=== PATIENT | male | born 1960 | race American Indian/Alaskan Native ===

== ENCOUNTER 2016-09-29 20:40 | Inpatient (IN) | payer SELFPAY ==
[2016-09-29 20:40] VITALS: BMI 30.4
[2016-09-29 21:10] LABS: BASO % 0.6 % (0.0-2.0); EOS % 0.5 % (0.0-4.0); HEMATOCRIT 49.9 % (35.0-51.0); LYMPH # 2.9 K/uL (1.0-4.3); LYMPH % 50.3 % (20.0-40.0); MEAN CELL VOLUME 87.9 fL (80.0-94.0); MEAN CORPUSCULAR HEMOGLOBIN 29.6 pg (27.0-31.0); MEAN CORPUSCULAR HGB CONC 33.7 g/dL (33.0-37.0); MEAN PLATELET VOLUME 9.6 fL (7.2-11.7); MONO # 0.4 K/uL (0.0-0.8); MONO % 7.8 % (0.0-10.0); RED CELL DISTRIBUTION WIDTH 12.8 % (11.5-14.5); WHITE BLOOD COUNT 5.7 K/uL (4.8-10.8)
[2016-09-29 21:27] LABS: CHLORIDE 100 mmol/L (98-107); SODIUM 140 mmol/L (132-148)
[2016-09-29 21:29] LABS: AST/SGOT 154 U/L (17-59); BILIRUBIN,TOTAL 1.1 mg/dL (0.2-1.3); CARBON DIOXIDE 27 mmol/L (22-30); GFR AFRICAN-AMERICAN > 60; TOTAL PROTEIN 8.4 g/dL (6.3-8.3)
[2016-09-29 21:30] LABS: ALKALINE PHOSPHATASE 125 U/L (38-126); ALT/SGPT 77 U/L (21-72); BLOOD UREA NITROGEN 11 mg/dL (9-20); CALCIUM 8.8 mg/dl (8.6-10.4); GLUCOSE,RANDOM 84 mg/dL (75-110)
[2016-09-29] MEDS ORDERED: Sodium Chloride 0.9% 1,000 ML IV ONE (21:36)
[2016-09-29] MEDS ORDERED: Aluminum Hydroxide/Magnesium Hydroxide Susp (30 mL) PO STA (21:36)
[2016-09-29] MEDS ORDERED: Belladonna-Phenobarbital PO STA (21:36)
[2016-09-29] MEDS ORDERED: Belladonna-Phenobarbital ONE (21:43)
[2016-09-29] MEDS ORDERED: Aluminum Hydroxide/Magnesium Hydroxide Susp (30 mL) ONE (21:43)
[2016-09-29] MEDS ORDERED: Sodium Chloride 0.9% 50 ML IV ONE (21:44)
[2016-09-29] MEDS ORDERED: Sodium Chloride 0.9% 1,000 ML ONE (21:44)
--- NOTE | 2016-09-29 21:57 | C.PDOC ---
History Of Present Illness Patient is a 55 year old male who presents to the ER with a complaint of constant epigastric pain for the past 3 days, associated with nausea. Patient states he is "withdrawing from heroin and ETOH" and request something for his "withdrawal". Patient also states he is hungry and is asking for food. Denies fever, chills, chest pain or vomiting. Time Seen by Provider: 09/29/16 21:30 Chief Complaint (Nursing): Abdominal Pain History Per: Patient History/Exam Limitations: no limitations Onset/Duration Of Symptoms: Days (3) Current Symptoms Are (Timing): Still Present Location Of Pain/Discomfort: Epigastric Radiation Of Pain To:: None Quality Of Discomfort: Unable To Describe Associated Symptoms: Nausea. denies: Fever, Chills, Vomiting, Chest Pain Exacerbating Factors: None Alleviating Factors: None Recent travel outside of the [place]: No Past Medical History Reviewed: Historical Data, Nursing Documentation, Vital Signs Vital Signs: Last Vital Signs Temp 97.6 F 09/29/16 23:09 Pulse 66 09/29/16 23:09 Resp 18 09/29/16 23:09 BP 171/99 H 09/29/16 23:09 Pulse Ox 98 09/29/16 23:09 - Medical History PMH: Anxiety (used to take Xanax), Hepatitis, HTN, Seizures Surgical History: No Surg Hx - [facility] DETOXIFICATION SERVICES FOR SUBSTANCE ABUSE TREATMENT (11/09/15) GROUP TELEVISION OPERATOR FOR SUBSTANCE ABUSE, MOTIVATIONAL ENHANCE (02/11/15) MEDS MGMT FOR SUBSTANCE ABUSE TREATMENT, METHADONE MAINT (11/09/15) MEDS MGMT FOR SUBSTANCE ABUSE TREATMENT, OTH REPL MED (11/09/15) Family History: States: Unknown Family Hx - Social History Hx Tobacco Use: Yes Hx Alcohol Use: Yes Hx Substance Use: Yes - Immunization History Hx Tetanus Toxoid Vaccination: Yes Hx Influenza Vaccination: Yes Hx Pneumococcal Vaccination: Yes Review Of Systems Constitutional: Negative for: Fever, Chills Cardiovascular: Negative for: Chest Pain Gastrointestinal: Positive for: Nausea, Abdominal Pain (Epigastric) Physical Exam - Physical Exam Appears: Well, Non-toxic, No Acute Distress, Other (Requesting food) Skin: Normal Color, Warm, Dry Head: Atraumatic, Normacephalic Eye(s): bilateral: Normal Inspection, EOMI Oral Mucosa: Moist Chest: Symmetrical, No Tenderness Cardiovascular: Rhythm Regular, No Murmur Respiratory: No Rales, No Rhonchi, No Wheezing Gastrointestinal/Abdominal: Soft, Tenderness (Epigastric), No Guarding, No Rebound Neurological/Psych: Oriented x3, Normal Speech, Normal Cognition ED Course And Treatment - Laboratory Results Result Diagrams: 09/29/16 21:06 09/29/16 21:06 Lab Interpretation: No Acute Changes (elevated LFTs c/w diagnosis of Hep C) O2 Sat by Pulse Oximetry: 98 Pulse Ox Interpretation: Normal Reevaluation Time: 22:38 Reassessment Condition: Improved (Patient states to RN that his abdominal pain is better but is telling me he is still uncomfortable. He claims he is "withdrawing" because he uses 12-20 bags a day. His vitals are stable and he is in no distress.) - Physician Consult Information Time Consulting Physician Contacted: 11:30 Physician Contacted: Sekou Hoskins Outcome Of Conversation: Patient c/o severe distress and abdominal pain. He insists he is withdrawing. Dr Hoskins agrees to keep the patient for observation. Medical Decision Making Medical Decision Making: Plan: * Urinalysis * Maalox * Reglan * Protonix * Donnatel * IV fluids Disposition - Disposition Referrals: [facility] at [facility] [Outside] Disposition: HOSPITALIZED Disposition Time: 22:41 Condition: STABLE - POA Present On Arrival: None - Clinical Impression Clinical Impression: Abdominal pain, Drug dependence, Alcohol abuse - Scribe Statement The provider has reviewed the documentation as recorded by the Scribnaresh Zurita All medical record entries made by the Scribe were at my direction and personally dictated by me. I have reviewed the chart and agree that the record accurately reflects my personal performance of the history, physical exam, medical decision making, and the department course for this patient. I have also personally directed, reviewed, and agree with the discharge instructions and disposition.
[2016-09-29 22:13] LABS: URINE BILIRUBIN NEGATIVE (NEGATIVE); URINE BLOOD NEGATIVE (NEGATIVE); URINE COLOR Yellow (YELLOW); URINE GLUCOSE (UA) NORMAL (Normal); URINE KETONE NEGATIVE (NEGATIVE); URINE LEUKOCYTE ESTERASE NEG Leu/uL (Negative); URINE PROTEIN NEGATIVE (NEGATIVE)
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
[2016-09-30] MEDS: Sodium Chloride 0.9% 1,000 ML IV SCH ×2 (02:04→22:05)
[2016-09-30 03:44] LABS: CHLORIDE 104 mmol/L (98-107); POTASSIUM 3.6 mmol/L (3.6-5.2); SODIUM 138 mmol/L (132-148)
[2016-09-30 03:46] LABS: AST/SGOT 123 U/L (17-59); CARBON DIOXIDE 22 mmol/L (22-30); GFR AFRICAN-AMERICAN > 60
[2016-09-30 03:47] LABS: ALB/GLOB RATIO 0.8 (1.0-2.1); ALKALINE PHOSPHATASE 101 U/L (38-126); ALT/SGPT 75 U/L (21-72); BLOOD UREA NITROGEN 10 mg/dL (9-20); CALCIUM 7.4 mg/dl (8.6-10.4); GLUCOSE,RANDOM 75 mg/dL (75-110)
[2016-09-30 05:33] LABS: BASO % 0.7 % (0.0-2.0); EOS # 0.1 K/uL (0.0-0.7); EOS % 1.7 % (0.0-4.0); HEMATOCRIT 45.7 % (35.0-51.0); LYMPH % 50.4 % (20.0-40.0); MEAN CELL VOLUME 87.5 fL (80.0-94.0); MEAN CORPUSCULAR HEMOGLOBIN 29.6 pg (27.0-31.0); MEAN CORPUSCULAR HGB CONC 33.8 g/dL (33.0-37.0); MONO # 0.4 K/uL (0.0-0.8); NRBC % 0.1 % (0.0-2.0); RED CELL DISTRIBUTION WIDTH 12.8 % (11.5-14.5)
--- NOTE | 2016-09-30 10:57 | US ---
HISTORY: Abdominal pain. COMPARISON: None. TECHNIQUE: Sonographic evaluation of the abdomen. FINDINGS: LIVER: Measures 17.6 cm. Hepatopedal blood flow. Fatty infiltration manifest ultrasonographically as increased echogenicity of the liver parenchyma. No mass. No intrahepatic bile duct dilatation. GALLBLADDER: Unremarkable. No gallstones. COMMON BILE DUCT: Measures 3.4 mm. No stones. No dilatation. PANCREAS: Unremarkable as visualized. No mass. No ductal dilatation. RIGHT KIDNEY: Measures 6.5 x 12.8cm. Normal echogenicity. No calculus, mass, or hydronephrosis. LEFT KIDNEY: Measures 5.7 x 12.1cm. Normal echogenicity. No calculus, mass, or hydronephrosis. SPLEEN: Normal in size and contour. No mass. AORTA: No aneurysmal dilatation. IVC: Unremarkable. OTHER FINDINGS: None. IMPRESSION: No acute findings related to/accounting for the clinical presentation.
[2016-09-30] MEDS: Pantoprazole 40 mg EC Tab PO SCH (11:04)
[2016-09-30] MEDS: Enoxaparin 40 mg Syringe SC SCH (11:04)
[2016-09-30] MEDS: Multiple Vitamins Tab PO SCH (13:30)
--- NOTE | 2016-09-30 14:55 | PCM.PSYCH ---
Initial Psychiatric Evaluation - Initial Psychiatric Evaluation Type of Admission: Voluntary Legal Status: Capacity Chief Complaint (in patient's own words): "I am withdrawing" History of Present Illness and Precipitating Events: The pt is seen, chart reviewed, case discussed with staff. Consultation was asked for his substance use and wdw. This is a 55yo male who is with 3 children and lives with his mother. He states that he snorts 12 bags of heroin a day on and off for years. He also says that he drinks about 2 pints of alcohol a day, uses Xanax once a week, and snorts cocaine occasionally. He denies the use of Percocet or Oxycontin. He states that he has been to detox here a few months ago. He currently complains of anxiety, the shakes, and feels like vomiting. UDS positive for opioids and bzds. Past psych hx: vague bipolar condition, was on seroquel with good results. No victoria attempts Medical hx: Hep C Family psych hx: Unknown Current Medications: Active Medications Generic Name Dose Route Start Last Admin Trade Name Freq PRN Reason Stop Dose Admin Acetaminophen 650 mg 09/30/16 01:47 Tylenol 325mg Tab PO Q6 PRN Fever >100.4 F Chlordiazepoxide 25 mg 09/30/16 12:00 09/30/16 13:30 Librium PO 10/04/16 11:59 25 mg Q6 SUKH Administration Taper Chlordiazepoxide 25 mg 09/30/16 10:40 Librium PO Q4H PRN Alcohol Withdrawal Clonidine HCl 0.1 mg 09/30/16 02:00 09/30/16 14:03 Catapres PO 0.1 mg Q6H SUKH Administration Enoxaparin Sodium 40 mg 09/30/16 10:00 09/30/16 11:04 Lovenox SC 40 mg DAILY SUKH Administration Folic Acid 1 mg 09/30/16 10:45 09/30/16 13:30 Folic Acid PO 1 mg DAILY SUKH Administration Sodium Chloride 1,000 mls @ 100 mls/hr 09/30/16 02:00 09/30/16 02:04 Sodium Chloride 0.9% IV 100 mls/hr .Q10H SUKH Administration Lorazepam 2 mg 09/30/16 02:39 Ativan IVP Q3H PRN Anxiety Methadone HCl 0 mg 10/01/16 09:00 Methadone PO 10/04/16 08:59 Q24H SUKH Taper Multivitamins 1 tab 09/30/16 10:45 09/30/16 13:30 Hexavitamin PO 1 tab DAILY SUKH Administration Ondansetron HCl 4 mg 09/30/16 01:47 Zofran Inj IVP Q6 PRN Nausea/Vomiting Pantoprazole Sodium 40 mg 09/30/16 10:00 09/30/16 11:04 Protonix Ec Tab PO 40 mg DAILY SUKH Administration Quetiapine Fumarate 50 mg 09/30/16 10:45 09/30/16 13:30 Seroquel PO 50 mg BID SUKH Administration Thiamine HCl 100 mg 09/30/16 10:45 09/30/16 13:30 Vitamin B1 Tab PO 100 mg DAILY SUKH Administration Trazodone HCl 100 mg 09/30/16 22:00 Desyrel PO HS SUKH Past Psychiatric History - Past Psychiatric History Previous Treatment History: Inpatient Pertinent Medical Hx (Current Medical&Sleep Prob, Allergies): Allergies Allergy/AdvReac Type Severity Reaction Status Date / Time tomato Allergy Verified 09/29/16 20:59 Aspirin [Aspirin Chewable] 81 mg PO DAILY #30 chew 11/14/15 Gabapentin [Neurontin] 400 mg PO TID #90 cap 11/14/15 QUEtiapine [Seroquel] 100 mg PO BID #60 tab 11/14/15 amLODIPine [Norvasc] 10 mg PO DAILY #30 tab 11/14/15 hydrALAZINE [Apresoline] 25 mg PO TID #90 tab 11/14/15 Review of Systems - Psychiatric Psychiatric: Abnormal Sleep Pattern, Anxiety, Irritability. absent: Depression , Hallucinations, Homicidal Ideation, Suicidal Ideation Mental Status Examination - Personal Presentation Personal Presentation: Looks older than stated age - Affect Affect: Constricted - Motor Activity Motor Activity: Psychomotor Agitation (mild) - Reliability in Providing Information Reliability in Providing Information: Fair - Speech Speech: Organized - Mood Mood: Anxious - Formal Thought Process Formal Thought Process: No Impairment - Cognitive Functions Orientation: Person, Place, Situation, Time Sensorium: Alert Attention/Concentration: Attentive Estimate of Intelligence: Average Judgement: Intact, as evidence by: Insight regarding need for hospitalization Memory: Recent impaired, as evidence by: Inability to recall events of the day, Remote impaired as evidenced by: Inability to recall sig life events - Risk Risk: Withdrawal, Diminished functioning DSM 5 DX - DSM 5 DSM 5 Diagnosis: Opioid withdrawal Alcohol withdrawal Opioid use d/o - severe Alcohol use d/o - severe Bipolar d/o - unspecified - Recommended/Plan of Treatment Treatment Recommendations and Plan of Treatment: Opioids: - Methadone detox - As needed meds Alcohol/benzos: - Librium detox - As needed meds - gabapentin Support and psychoed [place] and CBT for abstinence 33 min
[2016-10-01] MEDS ORDERED: Sodium Chloride 0.9% 1,000 ML IV SCH ×3 (04:34→14:57)
[2016-10-01 06:57] LABS: BASO % 0.4 % (0.0-2.0); EOS # 0.1 K/uL (0.0-0.7); EOS % 1.8 % (0.0-4.0); HEMATOCRIT 46.7 % (35.0-51.0); LYMPH # 1.8 K/uL (1.0-4.3); LYMPH % 52.5 % (20.0-40.0); MEAN CELL VOLUME 87.1 fL (80.0-94.0); MEAN CORPUSCULAR HEMOGLOBIN 29.7 pg (27.0-31.0); MEAN CORPUSCULAR HGB CONC 34.1 g/dL (33.0-37.0); MEAN PLATELET VOLUME 9.3 fL (7.2-11.7); MONO # 0.4 K/uL (0.0-0.8); MONO % 11.4 % (0.0-10.0); NRBC % 0.1 % (0.0-2.0); RED CELL DISTRIBUTION WIDTH 12.7 % (11.5-14.5); WHITE BLOOD COUNT 3.4 K/uL (4.8-10.8)
[2016-10-01 07:25] LABS: CHLORIDE 101 mmol/L (98-107); POTASSIUM 3.3 mmol/L (3.6-5.2); SODIUM 134 mmol/L (132-148)
[2016-10-01 07:27] LABS: AST/SGOT 132 U/L (17-59); BILIRUBIN,TOTAL 1.5 mg/dL (0.2-1.3); CARBON DIOXIDE 24 mmol/L (22-30); GFR AFRICAN-AMERICAN > 60
[2016-10-01 07:28] LABS: ALB/GLOB RATIO 0.9 (1.0-2.1); ALKALINE PHOSPHATASE 104 U/L (38-126); ALT/SGPT 77 U/L (21-72); BLOOD UREA NITROGEN 11 mg/dL (9-20); CALCIUM 8.1 mg/dl (8.6-10.4); GLUCOSE,RANDOM 108 mg/dL (75-110); TOTAL PROTEIN 7.1 g/dL (6.3-8.3)
[2016-10-01] MEDS ORDERED: Potassium Chloride 20 mEq ER Tab PO ONE (10:00)
[2016-10-01] MEDS: Pantoprazole 40 mg EC Tab PO SCH (12:23)
[2016-10-01] MEDS: Multiple Vitamins Tab PO SCH (12:23)
[2016-10-01] MEDS: Enoxaparin 40 mg Syringe SC SCH (12:23)
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
--- NOTE | 2016-10-01 14:28 | CP.PCM.PN ---
Addendum entered and electronically signed by Dominga Gold DO 10/01/16 14:58 : As per cardiology, QTc <500 is acceptable for this patient. Seroquel, Trazadone , and methadone can be restarted. Fluids reduced due to Hypertension. Addendum entered and electronically signed by Dominga Gold DO 10/01/16 14:43 : Cardiology Consulted - Dr. Chester for QTc prolongation and bradycardia. Original Note: <Dominga Gold - Last Filed: 10/01/16 14:22> Subjective - Date & Time of Evaluation Date of Evaluation: 10/01/16 Time of Evaluation: 10:00 - Subjective Subjective: Medicine Note for Dr. Rodriguez, Patient was seen and examined at bedside. Patient was asymptomatic, vitals showed he was bradycardic at 30-40s. Patient stated this has happened to him before and when he gets this methadone, he "feels better". EKG was ordered showing QTc prolongation. Seroquel, Trazadone, and methadone where held. 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 ICU was consulted but patient was not an ICU candidate. Patient is to remain on telemetry. Denied fever, chills, headache, chest pain, SOB, abdominal pain, or urinary symptoms. Objective - Vital Signs/Intake and Output Vital Signs (last 24 hours): Temp Pulse Resp BP Pulse Ox 97.6 F 60 20 172/100 H 95 10/01/16 08:13 10/01/16 08:13 10/01/16 08:13 10/01/16 08:13 10/01/16 08:13 - Medications Medications: Current Medications Acetaminophen (Tylenol 325mg Tab) 650 mg PO Q6 PRN PRN Reason: Fever >100.4 F Chlordiazepoxide (Librium) 25 mg PO TID [facility] PRN Reason: Taper Stop: 10/04/16 11:59 Last Admin: 10/01/16 06:30 Dose: 25 mg Chlordiazepoxide (Librium) 25 mg PO Q4H PRN PRN Reason: Alcohol Withdrawal Diphenhydramine HCl (Benadryl) 25 mg PO ONCE PRN PRN Reason: Insomnia Last Admin: 09/30/16 21:54 Dose: 25 mg Enoxaparin Sodium (Lovenox) 40 mg SC DAILY [facility] Last Admin: 10/01/16 12:23 Dose: 40 mg Folic Acid (Folic Acid) 1 mg PO DAILY [facility] Last Admin: 10/01/16 12:23 Dose: 1 mg Sodium Chloride (Sodium Chloride 0.9%) 1,000 mls @ 100 mls/hr IV .Q10H [facility] Last Admin: 10/01/16 14:21 Dose: Not Given Lisinopril (Zestril) 10 mg PO DAILY [facility] Last Admin: 10/01/16 12:30 Dose: 10 mg Lorazepam (Ativan) 2 mg IVP Q3H PRN PRN Reason: Anxiety Methadone HCl (Methadone) 15 mg PO Q24H [facility] PRN Reason: Taper Stop: 10/04/16 08:59 Last Admin: 10/01/16 12:24 Dose: Not Given Multivitamins (Hexavitamin) 1 tab PO DAILY [facility] Last Admin: 10/01/16 12:23 Dose: 1 tab Ondansetron HCl (Zofran Inj) 4 mg IVP Q6 PRN PRN Reason: Nausea/Vomiting Pantoprazole Sodium (Protonix Ec Tab) 40 mg PO DAILY [facility] Last Admin: 10/01/16 12:23 Dose: 40 mg Quetiapine Fumarate (Seroquel) 50 mg PO BID [facility] Last Admin: 10/01/16 12:24 Dose: Not Given Thiamine HCl (Vitamin B1 Tab) 100 mg PO DAILY [facility] Last Admin: 10/01/16 12:23 Dose: 100 mg Trazodone HCl (Desyrel) 100 mg PO HS [facility] Last Admin: 09/30/16 21:54 Dose: 100 mg - Constitutional Appears: No Acute Distress - Head Exam Head Exam: NORMAL INSPECTION, NORMOCEPHALIC - Respiratory Exam Respiratory Exam: Clear to Ausculation Bilateral, NORMAL BREATHING PATTERN. absent: Decreased Breath Sounds, Wheezes - Cardiovascular Exam Cardiovascular Exam: Bradycardia - GI/Abdominal Exam GI & Abdominal Exam: Soft, Normal Bowel Sounds. absent: Distended, Tenderness - Extremities Exam Extremities Exam: Normal Inspection. absent: Pedal Edema, Tenderness - Neurological Exam Neurological Exam: Alert, Awake, Oriented x3 - Skin Skin Exam: Dry, Intact, Normal Color, Warm Assessment and Plan - Assessment and Plan (Free Text) Plan: Asymptomatic Bradycardia Patient HR ranging 30-50s. EKG showed QTc prolongation at 470. All medications that prolonged QTc where held. ICU was consulted but patient is not a candidate for ICU. Continue telemetry monitoring Polysubstance abuse Patient educated on cessation, wants detox but no bed available at this time Psych consult, Dr. Moore, help appreciated [facility] protocol Librium taper Seizure precaution Aspiration precaution Ativan 2 mg Q3H PRN - HELD due to QTC prolongation Clonidine 0.1 mg PO Q6H- HELD due to QTC prolongation Methadone -HELD due to QTC prolongation Seroquel and Trazodone HELD due to QTC prolongation Abdominal pain Observation med/surg Abdominal US - no acute findings NS 100 c/hr Zofran 4 mg IVP Q6H PRN Protonix 40 mg PO daily EKG GAVINO x 3- negative HTN Clonidine 0.1 mg PO Q6H - HELD due to QTC prolongation Prophylactic Measures Lovenox 40 mg SC daily [facility] Tylenol 650 mg PO Q6H PRN Protonix 40 mg PO daily <Kenan Rodriguez M - Last Filed: 10/01/16 16:00> Objective - Vital Signs/Intake and Output Vital Signs (last 24 hours): Temp Pulse Resp BP Pulse Ox 97.6 F 53 L 20 190/99 H 99 10/01/16 14:30 10/01/16 14:30 10/01/16 14:30 10/01/16 14:30 10/01/16 14:30 - Medications Medications: Current Medications Acetaminophen (Tylenol 325mg Tab) 650 mg PO Q6 PRN PRN Reason: Fever >100.4 F Chlordiazepoxide (Librium) 25 mg PO TID [facility] PRN Reason: Taper Stop: 10/04/16 11:59 Last Admin: 10/01/16 14:40 Dose: 25 mg Chlordiazepoxide (Librium) 25 mg PO Q4H PRN PRN Reason: Alcohol Withdrawal Diphenhydramine HCl (Benadryl) 25 mg PO ONCE PRN PRN Reason: Insomnia Last Admin: 09/30/16 21:54 Dose: 25 mg Enoxaparin Sodium (Lovenox) 40 mg SC DAILY [facility] Last Admin: 10/01/16 12:23 Dose: 40 mg Folic Acid (Folic Acid) 1 mg PO DAILY [facility] Last Admin: 10/01/16 12:23 Dose: 1 mg Lisinopril (Zestril) 10 mg PO DAILY [facility] Last Admin: 10/01/16 12:30 Dose: 10 mg Lorazepam (Ativan) 2 mg IVP Q3H PRN PRN Reason: Anxiety Methadone HCl (Methadone) 15 mg PO Q24H [facility] PRN Reason: Taper Stop: 10/04/16 08:59 Last Admin: 10/01/16 12:24 Dose: Not Given Multivitamins (Hexavitamin) 1 tab PO DAILY [facility] Last Admin: 10/01/16 12:23 Dose: 1 tab Ondansetron HCl (Zofran Inj) 4 mg IVP Q6 PRN PRN Reason: Nausea/Vomiting Pantoprazole Sodium (Protonix Ec Tab) 40 mg PO DAILY [facility] Last Admin: 10/01/16 12:23 Dose: 40 mg Quetiapine Fumarate (Seroquel) 50 mg PO BID [facility] Last Admin: 10/01/16 12:24 Dose: Not Given Thiamine HCl (Vitamin B1 Tab) 100 mg PO DAILY [facility] Last Admin: 10/01/16 12:23 Dose: 100 mg Trazodone HCl (Desyrel) 100 mg PO HS [facility] Last Admin: 09/30/16 21:54 Dose: 100 mg Attending/Attestation - Attestation I have personally seen and examined this patient.: Yes I have fully participated in the care of the patient.: Yes I have reviewed all pertinent clinical information, including history, physical exam and plan: Yes Notes (Text): 10/01/16 15:58 Patient was seen and examined at bedside with the resident Patient had a rapid response this morning because of bradycardia. ICU evaluation was requested but patient was declined by ICU because patient was awake and alert and hemodynamically stable. We also requested cardiology consultation and followed up recommendations. Medications were restarted as per recommendations of cardiology. Patient is being the followed up by psychiatry for management of depression and drug abuse Follow-up recommendations I reviewed the patient's chart, medical records, labs, imaging studies and I discussed the plan of care with the consultants and with the resident. I agree with the above history and physical and assessment/plan but the resident.
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
--- NOTE | 2016-10-02 06:35 | CP.PCM.PN ---
Subjective - Date & Time of Evaluation Date of Evaluation: 10/02/16 Time of Evaluation: 06:10 - Subjective Subjective: pt no issues Objective - Vital Signs/Intake and Output Vital Signs (last 24 hours): Temp Pulse Resp BP Pulse Ox 97.8 F 53 L 20 126/86 96 10/02/16 00:00 10/02/16 00:00 10/02/16 00:00 10/02/16 00:00 10/02/16 00:00 - Medications Medications: Current Medications Acetaminophen (Tylenol 325mg Tab) 650 mg PO Q6 PRN PRN Reason: Fever >100.4 F Last Admin: 10/01/16 17:43 Dose: 650 mg Chlordiazepoxide (Librium) 25 mg PO TID [facility] PRN Reason: Taper Stop: 10/04/16 11:59 Last Admin: 10/01/16 17:41 Dose: 25 mg Chlordiazepoxide (Librium) 25 mg PO Q4H PRN PRN Reason: Alcohol Withdrawal Last Admin: 10/02/16 00:33 Dose: 25 mg Enoxaparin Sodium (Lovenox) 40 mg SC DAILY [facility] Last Admin: 10/01/16 12:23 Dose: 40 mg Folic Acid (Folic Acid) 1 mg PO DAILY [facility] Last Admin: 10/01/16 12:23 Dose: 1 mg Lisinopril (Zestril) 10 mg PO DAILY [facility] Last Admin: 10/01/16 12:30 Dose: 10 mg Lorazepam (Ativan) 2 mg IVP Q3H PRN PRN Reason: Anxiety Last Admin: 10/02/16 00:31 Dose: 2 mg Methadone HCl (Methadone) 15 mg PO Q24H [facility] PRN Reason: Taper Stop: 10/04/16 08:59 Last Admin: 10/01/16 16:25 Dose: 10 mg Multivitamins (Hexavitamin) 1 tab PO DAILY [facility] Last Admin: 10/01/16 12:23 Dose: 1 tab Ondansetron HCl (Zofran Inj) 4 mg IVP Q6 PRN PRN Reason: Nausea/Vomiting Pantoprazole Sodium (Protonix Ec Tab) 40 mg PO DAILY [facility] Last Admin: 10/01/16 12:23 Dose: 40 mg Quetiapine Fumarate (Seroquel) 50 mg PO BID [facility] Last Admin: 05/26/17 17:41 Dose: 50 mg Thiamine HCl (Vitamin B1 Tab) 100 mg PO DAILY [facility] Last Admin: 10/01/16 12:23 Dose: 100 mg Trazodone HCl (Desyrel) 100 mg PO [facility] Last Admin: 10/01/16 21:34 Dose: 100 mg - Constitutional Appears: Well, No Acute Distress - Head Exam Head Exam: NORMOCEPHALIC - Eye Exam Eye Exam: Normal appearance - ENT Exam ENT Exam: Mucous Membranes Moist - Respiratory Exam Respiratory Exam: Clear to Ausculation Bilateral. absent: Rales - Cardiovascular Exam Cardiovascular Exam: REGULAR RHYTHM - GI/Abdominal Exam GI & Abdominal Exam: Soft, Normal Bowel Sounds. absent: Tenderness - Extremities Exam Extremities Exam: Normal Inspection. absent: Calf Tenderness - Neurological Exam Neurological Exam: Alert - Psychiatric Exam Psychiatric exam: Normal Mood - Skin Skin Exam: Warm Assessment and Plan (1) Hypertension Assessment & Plan: check QT continue HTN meds low salt diet Status: Acute
[2016-10-02] MEDS: Pantoprazole 40 mg EC Tab PO SCH (09:19)
[2016-10-02] MEDS: Enoxaparin 40 mg Syringe SC SCH (09:19)
[2016-10-02] MEDS: Multiple Vitamins Tab PO SCH (09:19)
[2016-10-02 11:53] LABS: HEMATOCRIT 47.4 % (35.0-51.0); MEAN CELL VOLUME 87.9 fL (80.0-94.0); MEAN CORPUSCULAR HEMOGLOBIN 29.6 pg (27.0-31.0); MEAN CORPUSCULAR HGB CONC 33.7 g/dL (33.0-37.0); MEAN PLATELET VOLUME 10.1 fL (7.2-11.7); RED CELL DISTRIBUTION WIDTH 12.7 % (11.5-14.5); WHITE BLOOD COUNT 3.7 K/uL (4.8-10.8)
[2016-10-02 12:10] LABS: CHLORIDE 103 mmol/L (98-107); SODIUM 135 mmol/L (132-148)
[2016-10-02 12:11] LABS: POTASSIUM 3.4 mmol/L (3.6-5.2)
[2016-10-02 12:12] LABS: GFR AFRICAN-AMERICAN > 60
[2016-10-02 12:14] LABS: ALB/GLOB RATIO 0.9 (1.0-2.1); ALKALINE PHOSPHATASE 116 U/L (38-126); ALT/SGPT 84 U/L (21-72); AST/SGOT 129 U/L (17-59); BLOOD UREA NITROGEN 10 mg/dL (9-20); CALCIUM 8.4 mg/dl (8.6-10.4); CARBON DIOXIDE 22 mmol/L (22-30); GLUCOSE,RANDOM 136 mg/dL (75-110); TOTAL PROTEIN 7.5 g/dL (6.3-8.3)
[2016-10-02] MEDS ORDERED: Potassium Chloride 20 mEq ER Tab PO STA (12:14)
--- NOTE | 2016-10-02 13:45 | CP.PCM.PN ---
<Polina Pretty - Last Filed: 10/02/16 18:30> Subjective - Date & Time of Evaluation Date of Evaluation: 10/02/16 Time of Evaluation: 17:56 - Subjective Subjective: Medicine Progress Note - Dr. Rodriguez's Service Patient seen and examined at bedside this Am. Patient reports he is feeling okay this morning. Patient is shaky, but otherwise feeling well. Denies chest pain, SOB, diarrhea, constipation, nausea, vomiting. He reports he has not eaten. Has not ambulated much. No acute events overnight as per staff. Objective - Vital Signs/Intake and Output Vital Signs (last 24 hours): Temp Pulse Resp BP Pulse Ox 97.4 F L 84 20 154/84 H 98 10/02/16 12:36 10/02/16 12:36 10/02/16 12:36 10/02/16 12:36 10/02/16 12:36 - Medications Medications: Current Medications Acetaminophen (Tylenol 325mg Tab) 650 mg PO Q6 PRN PRN Reason: Fever >100.4 F Last Admin: 10/01/16 17:43 Dose: 650 mg Chlordiazepoxide (Librium) 25 mg PO BID [facility] PRN Reason: Taper Stop: 10/04/16 11:59 Last Admin: 10/02/16 09:19 Dose: 25 mg Chlordiazepoxide (Librium) 25 mg PO Q4H PRN PRN Reason: Alcohol Withdrawal Last Admin: 10/02/16 00:33 Dose: 25 mg Enoxaparin Sodium (Lovenox) 40 mg SC DAILY [facility] Last Admin: 10/02/16 09:19 Dose: 40 mg Folic Acid (Folic Acid) 1 mg PO DAILY [facility] Last Admin: 10/02/16 09:19 Dose: 1 mg Lisinopril (Zestril) 10 mg PO DAILY [facility] Last Admin: 10/02/16 09:20 Dose: Not Given Lorazepam (Ativan) 2 mg IVP Q3H PRN PRN Reason: Anxiety Last Admin: 10/02/16 00:31 Dose: 2 mg Methadone HCl (Methadone) 10 mg PO Q24H [facility] PRN Reason: Taper Stop: 10/04/16 08:59 Last Admin: 10/02/16 09:17 Dose: 10 mg Multivitamins (Hexavitamin) 1 tab PO DAILY [facility] Last Admin: 10/02/16 09:19 Dose: 1 tab Ondansetron HCl (Zofran Inj) 4 mg IVP Q6 PRN PRN Reason: Nausea/Vomiting Pantoprazole Sodium (Protonix Ec Tab) 40 mg PO DAILY [facility] Last Admin: 10/02/16 09:19 Dose: 40 mg Quetiapine Fumarate (Seroquel) 50 mg PO BID [facility] Last Admin: 10/02/16 09:19 Dose: 50 mg Thiamine HCl (Vitamin B1 Tab) 100 mg PO DAILY [facility] Last Admin: 10/02/16 09:19 Dose: 100 mg Trazodone HCl (Desyrel) 100 mg PO HS [facility] Last Admin: 10/01/16 21:34 Dose: 100 mg - Labs Labs: 10/02/16 11:42 10/02/16 11:42 - Constitutional Appears: No Acute Distress - Head Exam Head Exam: NORMAL INSPECTION, NORMOCEPHALIC - Eye Exam Eye Exam: EOMI, Normal appearance - ENT Exam ENT Exam: Mucous Membranes Moist - Respiratory Exam Respiratory Exam: Clear to Ausculation Bilateral, NORMAL BREATHING PATTERN - Cardiovascular Exam Cardiovascular Exam: REGULAR RHYTHM, +S1, +S2 - GI/Abdominal Exam GI & Abdominal Exam: Soft. absent: Distended, Tenderness - Extremities Exam Extremities Exam: Full ROM - Back Exam Back Exam: NORMAL INSPECTION - Neurological Exam Neurological Exam: Alert, Awake, Oriented x3 Additional comments: +tremor - Psychiatric Exam Psychiatric exam: Normal Affect, Normal Mood - Skin Skin Exam: Dry, Warm Assessment and Plan - Assessment and Plan (Free Text) Assessment: 1. Asymptomatic Bradycardia Patient HR ranging 30-50s. Today HR 40-50's. EKG showed QTc prolongation at 470. GAVINO x 3- negative Cardiology Consulted - Dr. Chester for QTc prolongation and bradycardia. ICU was consulted but patient is not a candidate for ICU. As per cardiology, QTc <500 is acceptable for this patient. Seroquel, Trazodone , and methadone may be continued. Fluids reduced due to Hypertension. Continue telemetry monitoring 2. Polysubstance abuse Patient educated on cessation, wants detox but no bed available at this time Psych consult, Dr. Moore, help appreciated [facility] protocol Seizure precaution Aspiration precaution * Librium taper * Ativan 2 mg Q3H PRN * Methadone 10 mg O Q24H * Seroquel and Trazodone * D/C Clonidine 0.1 mg PO Q6H 3. Abdominal pain Resolved Abdominal US - no acute findings NS 100 c/hr Zofran 4 mg IVP Q6H PRN Protonix 40 mg PO daily 4. HTN * D/C Clonidine 0.1 mg PO Q6H due to QTC prolongation * Zestril 10 mg PO daily 5. Back Pain * Tylenol PRN 6. Prophylactic Measures * Lovenox 40 mg SC daily * SCDs * Protonix 40 mg PO daily <Kenan Rodriguez - Last Filed: 10/03/16 08:29> Objective - Vital Signs/Intake and Output Vital Signs (last 24 hours): Temp Pulse Resp BP Pulse Ox 98.1 F 57 L 20 149/92 H 97 10/02/16 23:45 10/03/16 06:24 10/02/16 23:45 10/03/16 06:24 10/02/16 23:45 Intake and Output: 10/03/16 10/03/16 06:59 18:59 Intake Total 480 Output Total 200 Balance 280 - Medications Medications: Current Medications Acetaminophen (Tylenol 325mg Tab) 650 mg PO Q6 PRN PRN Reason: Fever >100.4 F Last Admin: 10/02/16 15:36 Dose: 650 mg Acetaminophen (Tylenol 325mg Tab) 650 mg PO Q6 PRN PRN Reason: Pain, moderate (4-7) Chlordiazepoxide (Librium) 25 mg PO BID [facility] PRN Reason: Taper Stop: 10/04/16 11:59 Last Admin: 10/02/16 17:38 Dose: 25 mg Chlordiazepoxide (Librium) 25 mg PO Q4H PRN PRN Reason: Alcohol Withdrawal Last Admin: 10/02/16 21:46 Dose: 25 mg Enoxaparin Sodium (Lovenox) 40 mg SC DAILY [facility] Last Admin: 10/02/16 09:19 Dose: 40 mg Folic Acid (Folic Acid) 1 mg PO DAILY [facility] Last Admin: 10/02/16 09:19 Dose: 1 mg Lisinopril (Zestril) 10 mg PO DAILY [facility] Last Admin: 10/02/16 09:20 Dose: Not Given Lorazepam (Ativan) 2 mg IVP Q3H PRN PRN Reason: Anxiety Last Admin: 10/02/16 21:38 Dose: 2 mg Methadone HCl (Methadone) 10 mg PO Q24H [facility] PRN Reason: Taper Stop: 10/04/16 08:59 Last Admin: 10/02/16 09:17 Dose: 10 mg Multivitamins (Hexavitamin) 1 tab PO DAILY [facility] Last Admin: 10/02/16 09:19 Dose: 1 tab Ondansetron HCl (Zofran Inj) 4 mg IVP Q6 PRN PRN Reason: Nausea/Vomiting Pantoprazole Sodium (Protonix Ec Tab) 40 mg PO DAILY [facility] Last Admin: 10/02/16 09:19 Dose: 40 mg Quetiapine Fumarate (Seroquel) 50 mg PO BID [facility] Last Admin: 10/02/16 19:00 Dose: 50 mg Thiamine HCl (Vitamin B1 Tab) 100 mg PO DAILY [facility] Last Admin: 10/02/16 09:19 Dose: 100 mg Trazodone HCl (Desyrel) 100 mg PO HS [facility] Last Admin: 10/02/16 21:47 Dose: 100 mg - Labs Labs: 10/02/16 11:42 10/03/16 07:24 Attending/Attestation - Attestation I have personally seen and examined this patient.: Yes I have fully participated in the care of the patient.: Yes I have reviewed all pertinent clinical information, including history, physical exam and plan: Yes Notes (Text): 10/03/16 08:25 Patient was seen and examined at bedside On Methadone taper for heroin withdrawal and [facility] protocol for alcohol withdrawal Patient is still mildly tremulous but clinically improving. I reviewed the chart, labs, imaging studies, media sales consultant notes and I discussed the plan of care with the resident and I agree with above history and physical and assessment/plan by the resident.
[2016-10-03 00:38] VITALS: RESP 20
--- NOTE | 2016-10-03 06:56 | CP.PCM.PN ---
Subjective - Date & Time of Evaluation Date of Evaluation: 10/03/16 Time of Evaluation: 06:55 - Subjective Subjective: tolerating po no cp anxious this am Objective - Vital Signs/Intake and Output Vital Signs (last 24 hours): Temp Pulse Resp BP Pulse Ox 98.1 F 57 L 20 149/92 H 97 10/02/16 23:45 10/03/16 06:24 10/02/16 23:45 10/03/16 06:24 10/02/16 23:45 Intake and Output: 10/02/16 10/03/16 18:59 06:59 Intake Total 360 480 Output Total 200 Balance 360 280 - Medications Medications: Current Medications Acetaminophen (Tylenol 325mg Tab) 650 mg PO Q6 PRN PRN Reason: Fever >100.4 F Last Admin: 10/02/16 15:36 Dose: 650 mg Acetaminophen (Tylenol 325mg Tab) 650 mg PO Q6 PRN PRN Reason: Pain, moderate (4-7) Chlordiazepoxide (Librium) 25 mg PO BID [facility] PRN Reason: Taper Stop: 10/04/16 11:59 Last Admin: 10/02/16 17:38 Dose: 25 mg Chlordiazepoxide (Librium) 25 mg PO Q4H PRN PRN Reason: Alcohol Withdrawal Last Admin: 10/02/16 21:46 Dose: 25 mg Enoxaparin Sodium (Lovenox) 40 mg SC DAILY [facility] Last Admin: 10/02/16 09:19 Dose: 40 mg Folic Acid (Folic Acid) 1 mg PO DAILY [facility] Last Admin: 10/02/16 09:19 Dose: 1 mg Lisinopril (Zestril) 10 mg PO DAILY [facility] Last Admin: 10/02/16 09:20 Dose: Not Given Lorazepam (Ativan) 2 mg IVP Q3H PRN PRN Reason: Anxiety Last Admin: 10/02/16 21:38 Dose: 2 mg Methadone HCl (Methadone) 10 mg PO Q24H [facility] PRN Reason: Taper Stop: 10/04/16 08:59 Last Admin: 10/02/16 09:17 Dose: 10 mg Multivitamins (Hexavitamin) 1 tab PO DAILY [facility] Last Admin: 10/02/16 09:19 Dose: 1 tab Ondansetron HCl (Zofran Inj) 4 mg IVP Q6 PRN PRN Reason: Nausea/Vomiting Pantoprazole Sodium (Protonix Ec Tab) 40 mg PO DAILY [facility] Last Admin: 10/02/16 09:19 Dose: 40 mg Quetiapine Fumarate (Seroquel) 50 mg PO BID [facility] Last Admin: 10/02/16 19:00 Dose: 50 mg Thiamine HCl (Vitamin B1 Tab) 100 mg PO DAILY [facility] Last Admin: 10/02/16 09:19 Dose: 100 mg Trazodone HCl (Desyrel) 100 mg PO [facility] Last Admin: 10/02/16 21:47 Dose: 100 mg - Labs Labs: 10/02/16 11:42 10/02/16 11:42 - Constitutional Appears: Well - Head Exam Head Exam: ATRAUMATIC - Eye Exam Eye Exam: Normal appearance - ENT Exam ENT Exam: Mucous Membranes Moist - Respiratory Exam Respiratory Exam: Clear to Ausculation Bilateral, NORMAL BREATHING PATTERN - Cardiovascular Exam Cardiovascular Exam: REGULAR RHYTHM, Murmur - GI/Abdominal Exam GI & Abdominal Exam: Soft, Normal Bowel Sounds - Exam External exam: NORMAL EXTERNAL EXAM - Extremities Exam Extremities Exam: absent: Pedal Edema - Neurological Exam Neurological Exam: Alert, Awake - Psychiatric Exam Psychiatric exam: Anxious - Skin Skin Exam: Dry Assessment and Plan (1) Hypertension Assessment & Plan: dvt propylaxis'continue bp meds Status: Acute
[2016-10-03 07:58] LABS: HEMATOCRIT 47.7 % (35.0-51.0); MEAN CELL VOLUME 88.4 fL (80.0-94.0); MEAN CORPUSCULAR HEMOGLOBIN 29.5 pg (27.0-31.0); MEAN CORPUSCULAR HGB CONC 33.4 g/dL (33.0-37.0); MEAN PLATELET VOLUME 9.9 fL (7.2-11.7); RED CELL DISTRIBUTION WIDTH 12.9 % (11.5-14.5)
[2016-10-03 08:08] LABS: CHLORIDE 101 mmol/L (98-107)
[2016-10-03 08:09] LABS: POTASSIUM 3.5 mmol/L (3.6-5.2); SODIUM 134 mmol/L (132-148)
[2016-10-03 08:11] LABS: ALB/GLOB RATIO 0.9 (1.0-2.1); ALKALINE PHOSPHATASE 112 U/L (38-126); ALT/SGPT 84 U/L (21-72); AST/SGOT 115 U/L (17-59); BILIRUBIN,TOTAL 0.9 mg/dL (0.2-1.3); BLOOD UREA NITROGEN 8 mg/dL (9-20); CARBON DIOXIDE 24 mmol/L (22-30); GFR AFRICAN-AMERICAN > 60; GLUCOSE,RANDOM 92 mg/dL (75-110); TOTAL PROTEIN 7.3 g/dL (6.3-8.3)
[2016-10-03 08:12] LABS: CALCIUM 8.3 mg/dl (8.6-10.4); MAGNESIUM 1.8 mg/dL (1.6-2.3); PHOSPHOROUS 3.9 mg/dL (2.5-4.5)
[2016-10-03] MEDS: Enoxaparin 40 mg Syringe SC SCH (09:30)
[2016-10-03] MEDS: Multiple Vitamins Tab PO SCH (09:31)
[2016-10-03] MEDS: Pantoprazole 40 mg EC Tab PO SCH (09:32)
[2016-10-03] MEDS ORDERED: Potassium Chloride 20 mEq ER Tab PO ONE (11:15)
--- NOTE | 2016-10-03 11:34 | RAD ---
HISTORY: New onset cough. Portable study 11:21. COMPARISON: 07/10/2015. FINDINGS: LUNGS: No active pulmonary disease. PLEURA: No significant pleural effusion identified, no pneumothorax apparent. CARDIOVASCULAR: No radiographic findings to suggest acute or significant cardiovascular disease. OSSEOUS STRUCTURES: No significant abnormalities. VISUALIZED UPPER ABDOMEN: Normal. OTHER FINDINGS: None. IMPRESSION: No active disease. No significant interval change compared to the prior examination(s).
--- NOTE | 2016-10-03 12:20 | CP.PCM.PN ---
<Polina Pretty - Last Filed: 10/03/16 12:27> Subjective - Date & Time of Evaluation Date of Evaluation: 10/03/16 Time of Evaluation: 09:00 - Subjective Subjective: Medicine Progress Note- Dr. Rodriguez's Service: Patient seen and examined at bedside this AM. Patient reports he is not feeling well this AM. Reports 5 mg of Methadone is not enough. Admits to feeling shaky this AM. Patient would like to sleep because he has been getting little sleep at night. Admits to new onset cough that is dry. Admits to some fatigue. Denies abdominal pain, nausea, vomiting, fevers, chills, headache. No other complaints at this time. Objective - Vital Signs/Intake and Output Vital Signs (last 24 hours): Temp Pulse Resp BP Pulse Ox 98.3 F 67 20 143/90 96 10/03/16 08:28 10/03/16 08:28 10/03/16 08:28 10/03/16 08:28 10/03/16 08:28 Intake and Output: 10/03/16 10/03/16 06:59 18:59 Intake Total 480 Output Total 200 Balance 280 - Medications Medications: Current Medications Acetaminophen (Tylenol 325mg Tab) 650 mg PO Q6 PRN PRN Reason: Fever >100.4 F Last Admin: 10/02/16 15:36 Dose: 650 mg Acetaminophen (Tylenol 325mg Tab) 650 mg PO Q6 PRN PRN Reason: Pain, moderate (4-7) Last Admin: 10/03/16 11:40 Dose: 650 mg Chlordiazepoxide (Librium) 25 mg PO DAILY [facility] PRN Reason: Taper Stop: 10/04/16 11:59 Last Admin: 10/03/16 09:31 Dose: 25 mg Chlordiazepoxide (Librium) 25 mg PO Q4H PRN PRN Reason: Alcohol Withdrawal Last Admin: 10/02/16 21:46 Dose: 25 mg Enoxaparin Sodium (Lovenox) 40 mg SC DAILY [facility] Last Admin: 10/03/16 09:30 Dose: 40 mg Folic Acid (Folic Acid) 1 mg PO DAILY [facility] Last Admin: 10/03/16 09:32 Dose: 1 mg Lisinopril (Zestril) 10 mg PO DAILY [facility] Last Admin: 10/03/16 09:32 Dose: 10 mg Lorazepam (Ativan) 2 mg IVP Q3H PRN PRN Reason: Anxiety Last Admin: 10/02/16 21:38 Dose: 2 mg Methadone HCl (Methadone) 5 mg PO Q24H [facility] PRN Reason: Taper Stop: 10/04/16 08:59 Last Admin: 10/03/16 09:36 Dose: 5 mg Multivitamins (Hexavitamin) 1 tab PO DAILY [facility] Last Admin: 10/03/16 09:31 Dose: 1 tab Ondansetron HCl (Zofran Inj) 4 mg IVP Q6 PRN PRN Reason: Nausea/Vomiting Pantoprazole Sodium (Protonix Ec Tab) 40 mg PO DAILY [facility] Last Admin: 10/03/16 09:32 Dose: 40 mg Quetiapine Fumarate (Seroquel) 50 mg PO BID [facility] Last Admin: 10/03/16 09:31 Dose: 50 mg Thiamine HCl (Vitamin B1 Tab) 100 mg PO DAILY [facility] Last Admin: 10/03/16 09:32 Dose: 100 mg Trazodone HCl (Desyrel) 100 mg PO HS [facility] Last Admin: 10/02/16 21:47 Dose: 100 mg - Labs Labs: 10/03/16 07:24 10/03/16 07:24 - Constitutional Appears: No Acute Distress - Head Exam Head Exam: NORMAL INSPECTION, NORMOCEPHALIC - Eye Exam Eye Exam: EOMI, Normal appearance - ENT Exam ENT Exam: Mucous Membranes Moist - Neck Exam Neck Exam: Full ROM, Normal Inspection - Respiratory Exam Respiratory Exam: Clear to Ausculation Bilateral, NORMAL BREATHING PATTERN - Cardiovascular Exam Cardiovascular Exam: REGULAR RHYTHM, +S1, +S2 - GI/Abdominal Exam GI & Abdominal Exam: Soft. absent: Distended, Tenderness - Extremities Exam Extremities Exam: Full ROM, Normal Inspection Additional comments: +bilateral hand tremor - Back Exam Back Exam: NORMAL INSPECTION - Neurological Exam Neurological Exam: Alert, Awake, Oriented x3 - Psychiatric Exam Psychiatric exam: Normal Affect, Normal Mood - Skin Skin Exam: Normal Color, Warm Assessment and Plan - Assessment and Plan (Free Text) Assessment: 1. Asymptomatic Bradycardia Patient HR ranging 30-50s. Today HR 48-60's. EKG showed QTc prolongation at 470. GAVINO x 3- negative Cardiology Consulted - Dr. Chester for QTc prolongation and bradycardia. ICU was consulted but patient is not a candidate for ICU. As per cardiology, QTc <500 is acceptable for this patient. Seroquel, Trazodone , and methadone may be continued. Continue telemetry monitoring 2. Polysubstance abuse Patient educated on cessation, wants detox but no bed available at this time Psych consult, Dr. Moore, help appreciated [facility] protocol Seizure precaution Aspiration precaution * Librium taper- day 4/ * Ativan 2 mg Q3H PRN * Methadone 5 mg O Q24H * Seroquel and Trazodone 3. Cough f/u CXR 4. Abdominal pain Resolved Abdominal US - no acute findings NS 100 c/hr Zofran 4 mg IVP Q6H PRN Protonix 40 mg PO daily 5. HTN * D/C Clonidine 0.1 mg PO Q6H due to QTC prolongation * Zestril 10 mg PO daily 6. Back Pain * Tylenol PRN 7. Prophylactic Measures * Lovenox 40 mg SC daily * SCDs * Protonix 40 mg PO daily <Kenan Rodriguez - Last Filed: 10/03/16 13:49> Objective - Vital Signs/Intake and Output Vital Signs (last 24 hours): Temp Pulse Resp BP Pulse Ox 98.3 F 67 20 143/90 96 10/03/16 08:28 10/03/16 08:28 10/03/16 08:28 10/03/16 08:28 10/03/16 08:28 Intake and Output: 10/03/16 10/03/16 06:59 18:59 Intake Total 480 Output Total 200 Balance 280 - Medications Medications: Current Medications Acetaminophen (Tylenol 325mg Tab) 650 mg PO Q6 PRN PRN Reason: Fever >100.4 F Last Admin: 10/02/16 15:36 Dose: 650 mg Acetaminophen (Tylenol 325mg Tab) 650 mg PO Q6 PRN PRN Reason: Pain, moderate (4-7) Last Admin: 10/03/16 11:40 Dose: 650 mg Chlordiazepoxide (Librium) 25 mg PO DAILY [facility] PRN Reason: Taper Stop: 10/04/16 11:59 Last Admin: 10/03/16 09:31 Dose: 25 mg Chlordiazepoxide (Librium) 25 mg PO Q4H PRN PRN Reason: Alcohol Withdrawal Last Admin: 10/02/16 21:46 Dose: 25 mg Enoxaparin Sodium (Lovenox) 40 mg SC DAILY [facility] Last Admin: 10/03/16 09:30 Dose: 40 mg Folic Acid (Folic Acid) 1 mg PO DAILY [facility] Last Admin: 10/03/16 09:32 Dose: 1 mg Lisinopril (Zestril) 10 mg PO DAILY [facility] Last Admin: 10/03/16 09:32 Dose: 10 mg Lorazepam (Ativan) 2 mg IVP Q3H PRN PRN Reason: Anxiety Last Admin: 10/02/16 21:38 Dose: 2 mg Methadone HCl (Methadone) 5 mg PO Q24H [facility] PRN Reason: Taper Stop: 10/04/16 08:59 Last Admin: 10/03/16 09:36 Dose: 5 mg Multivitamins (Hexavitamin) 1 tab PO DAILY [facility] Last Admin: 10/03/16 09:31 Dose: 1 tab Ondansetron HCl (Zofran Inj) 4 mg IVP Q6 PRN PRN Reason: Nausea/Vomiting Pantoprazole Sodium (Protonix Ec Tab) 40 mg PO DAILY [facility] Last Admin: 10/03/16 09:32 Dose: 40 mg Quetiapine Fumarate (Seroquel) 50 mg PO BID [facility] Last Admin: 10/03/16 09:31 Dose: 50 mg Thiamine HCl (Vitamin B1 Tab) 100 mg PO DAILY [facility] Last Admin: 10/03/16 09:32 Dose: 100 mg Trazodone HCl (Desyrel) 100 mg PO HS [facility] Last Admin: 10/02/16 21:47 Dose: 100 mg - Labs Labs: 10/03/16 07:24 10/03/16 07:24 Attending/Attestation - Attestation I have personally seen and examined this patient.: Yes I have fully participated in the care of the patient.: Yes I have reviewed all pertinent clinical information, including history, physical exam and plan: Yes Notes (Text): 10/03/16 13:47 Patient was seen and examined at bedside. Breathing is stable Continue methadone taper for heroin withdrawal. Continue [facility] protocol for alcohol withdrawal. I reviewed the chart, labs imaging studies and bridal sales consultant notes. I agree with above history and physical and assessment/plan by the resident.
--- NOTE | 2016-10-04 00:39 | CP.PCM.PN ---
<DorothyEdu - Last Filed: 10/04/16 00:45> Subjective - Date & Time of Evaluation Date of Evaluation: 10/04/16 Time of Evaluation: 00:39 - Subjective Subjective: PGY-1 Medicine Progress Note for Dr. Rodriguez Patient seen and examined at bedside. No acute event overnight. Patient resting in bed comfortably. Patient report that he feels the Methadone dose is not enough for him still. Patient also still complaining of slight tremor. Patient reports that he still has no energy. Denies cp, sob, abdominal pain n/v/d, constipation, fevers/chills, headache. Objective - Vital Signs/Intake and Output Vital Signs (last 24 hours): Temp Pulse Resp BP Pulse Ox 98 F 57 L 20 163/94 H 97 10/03/16 17:00 10/03/16 17:00 10/03/16 17:00 10/03/16 17:00 10/03/16 17:00 Intake and Output: 10/03/16 10/04/16 18:59 06:59 Intake Total 500 Balance 500 - Medications Medications: Current Medications Acetaminophen (Tylenol 325mg Tab) 650 mg PO Q6 PRN PRN Reason: Fever >100.4 F Last Admin: 10/02/16 15:36 Dose: 650 mg Acetaminophen (Tylenol 325mg Tab) 650 mg PO Q6 PRN PRN Reason: Pain, moderate (4-7) Last Admin: 10/03/16 11:40 Dose: 650 mg Chlordiazepoxide (Librium) 25 mg PO DAILY [facility] PRN Reason: Taper Stop: 10/04/16 11:59 Last Admin: 10/03/16 09:31 Dose: 25 mg Chlordiazepoxide (Librium) 25 mg PO Q4H PRN PRN Reason: Alcohol Withdrawal Last Admin: 10/03/16 20:43 Dose: 25 mg Enoxaparin Sodium (Lovenox) 40 mg SC DAILY [facility] Last Admin: 10/03/16 09:30 Dose: 40 mg Folic Acid (Folic Acid) 1 mg PO DAILY [facility] Last Admin: 10/03/16 09:32 Dose: 1 mg Lisinopril (Zestril) 10 mg PO DAILY [facility] Last Admin: 10/03/16 09:32 Dose: 10 mg Lorazepam (Ativan) 2 mg IVP Q3H PRN PRN Reason: Anxiety Last Admin: 10/03/16 22:29 Dose: 2 mg Methadone HCl (Methadone) 5 mg PO Q24H [facility] PRN Reason: Taper Stop: 10/04/16 08:59 Last Admin: 10/03/16 09:36 Dose: 5 mg Multivitamins (Hexavitamin) 1 tab PO DAILY [facility] Last Admin: 10/03/16 09:31 Dose: 1 tab Ondansetron HCl (Zofran Inj) 4 mg IVP Q6 PRN PRN Reason: Nausea/Vomiting Pantoprazole Sodium (Protonix Ec Tab) 40 mg PO DAILY [facility] Last Admin: 10/03/16 09:32 Dose: 40 mg Quetiapine Fumarate (Seroquel) 50 mg PO BID [facility] Last Admin: 10/03/16 18:00 Dose: 50 mg Thiamine HCl (Vitamin B1 Tab) 100 mg PO DAILY [facility] Last Admin: 10/03/16 09:32 Dose: 100 mg Trazodone HCl (Desyrel) 100 mg PO HS [facility] Last Admin: 10/03/16 22:06 Dose: 100 mg - Labs Labs: 10/03/16 07:24 10/03/16 07:24 - Constitutional Appears: No Acute Distress - Head Exam Head Exam: ATRAUMATIC, NORMOCEPHALIC - Eye Exam Eye Exam: EOMI, Normal appearance Pupil Exam: PERRL - ENT Exam ENT Exam: Mucous Membranes Moist - Neck Exam Neck Exam: Normal Inspection - Respiratory Exam Respiratory Exam: Clear to Ausculation Bilateral, NORMAL BREATHING PATTERN. absent: Wheezes - Cardiovascular Exam Cardiovascular Exam: Bradycardia, REGULAR RHYTHM, +S1, +S2 - GI/Abdominal Exam GI & Abdominal Exam: Soft, Normal Bowel Sounds. absent: Tenderness - Extremities Exam Extremities Exam: Normal Capillary Refill. absent: Calf Tenderness Additional comments: mild tremor - Back Exam Back Exam: absent: CVA tenderness (L), CVA tenderness (R) - Neurological Exam Neurological Exam: Alert, Awake, CN II-XII Intact, Oriented x3 - Psychiatric Exam Psychiatric exam: Normal Affect, Normal Mood - Skin Skin Exam: Dry, Intact, Normal Color, Warm Assessment and Plan - Assessment and Plan (Free Text) Plan: 1. Asymptomatic Bradycardia Patient HR ranging 40's-60's overnight EKG showed QT prolongation at 470. GAVINO x 3 negative Cardiology Consulted - Dr. Chester for QT prolongation and bradycardia. ICU was consulted but patient is not a candidate for ICU. As per cardiology, QT <500 is acceptable for this patient. Seroquel, Trazodone, and methadone may be continued. Continue telemetry monitoring 2. Polysubstance abuse Patient educated on cessation, wants detox but no bed available at this time Psych consult, Dr. Moore, help appreciated [facility] protocol Seizure precaution Aspiration precaution Librium taper Ativan 2 mg Q3H PRN Methadone 5 mg O Q24H Seroquel and Trazodone 3. Cough CXR: no active disease or significant interval change since last study (see full report) 4. Abdominal pain Resolved Abdominal US - no acute findings NS 100 c/hr Zofran 4 mg IVP Q6H PRN Protonix 40 mg PO daily 5. HTN D/C Clonidine 0.1 mg PO Q6H due to QTC prolongation Zestril 10 mg PO daily 6. Back Pain Tylenol PRN 7. Prophylactic Measures Lovenox 40 mg SC daily [facility] Protonix 40 mg PO daily <Prasanna Agosto H - Last Filed: 10/04/16 08:49> Objective - Vital Signs/Intake and Output Vital Signs (last 24 hours): Temp Pulse Resp BP Pulse Ox 97.9 F 62 20 170/105 H 97 10/04/16 08:37 10/04/16 08:37 10/04/16 08:37 10/04/16 08:37 10/04/16 08:37 Intake and Output: 10/04/16 10/04/16 06:59 18:59 Intake Total 860 Output Total 100 Balance 760 - Medications Medications: Current Medications Acetaminophen (Tylenol 325mg Tab) 650 mg PO Q6 PRN PRN Reason: Fever >100.4 F Last Admin: 10/02/16 15:36 Dose: 650 mg Acetaminophen (Tylenol 325mg Tab) 650 mg PO Q6 PRN PRN Reason: Pain, moderate (4-7) Last Admin: 10/03/16 11:40 Dose: 650 mg Chlordiazepoxide (Librium) 25 mg PO DAILY [facility] PRN Reason: Taper Stop: 10/04/16 11:59 Last Admin: 10/03/16 09:31 Dose: 25 mg Chlordiazepoxide (Librium) 25 mg PO Q4H PRN PRN Reason: Alcohol Withdrawal Last Admin: 10/03/16 20:43 Dose: 25 mg Enoxaparin Sodium (Lovenox) 40 mg SC DAILY [facility] Last Admin: 10/03/16 09:30 Dose: 40 mg Folic Acid (Folic Acid) 1 mg PO DAILY [facility] Last Admin: 10/03/16 09:32 Dose: 1 mg Lisinopril (Zestril) 10 mg PO DAILY [facility] Last Admin: 10/03/16 09:32 Dose: 10 mg Lorazepam (Ativan) 2 mg IVP Q3H PRN PRN Reason: Anxiety Last Admin: 10/03/16 22:29 Dose: 2 mg Methadone HCl (Methadone) 5 mg PO Q24H [facility] PRN Reason: Taper Stop: 10/04/16 08:59 Last Admin: 10/03/16 09:36 Dose: 5 mg Multivitamins (Hexavitamin) 1 tab PO DAILY [facility] Last Admin: 10/03/16 09:31 Dose: 1 tab Ondansetron HCl (Zofran Inj) 4 mg IVP Q6 PRN PRN Reason: Nausea/Vomiting Pantoprazole Sodium (Protonix Ec Tab) 40 mg PO DAILY [facility] Last Admin: 10/03/16 09:32 Dose: 40 mg Quetiapine Fumarate (Seroquel) 50 mg PO BID [facility] Last Admin: 10/03/16 18:00 Dose: 50 mg Thiamine HCl (Vitamin B1 Tab) 100 mg PO DAILY [facility] Last Admin: 10/03/16 09:32 Dose: 100 mg Trazodone HCl (Desyrel) 100 mg PO HS [facility] Last Admin: 10/03/16 22:06 Dose: 100 mg - Labs Labs: 10/04/16 08:11 10/03/16 07:24 Attending/Attestation - Attestation I have personally seen and examined this patient.: Yes I have fully participated in the care of the patient.: Yes I have reviewed all pertinent clinical information, including history, physical exam and plan: Yes Notes (Text): Medical Attending: Patient was seen and examined by me as well. As soon as I walked into the room he asked for methadone. Per my review of the chart and discussion with the staff he is due for one more dose of a tapering regimen today. Patient wanted more methadone however I explained to him that we would not do this unless the psychiatrist felt it was neccessary. Family/friend present at bedside - he was ok with this. He reports eating ok, denied shortness of breath, + he did report abdominal pain however very mild. Also per telemetry his HR is better - when he came in several days ago HR was very slow and lead to an DESIGN CHECKER. He had a prolonged QTC at that time as well. I explained to patient several times that we would not be modifying the methadone regimen. Prasanna Agosto
[2016-10-04 01:46] VITALS: PULSE 62
--- NOTE | 2016-10-04 07:53 | CP.PCM.PN ---
Subjective - Date & Time of Evaluation Date of Evaluation: 10/04/16 Time of Evaluation: 07:05 - Subjective Subjective: pt no chest pain toleratig po Objective - Vital Signs/Intake and Output Vital Signs (last 24 hours): Temp Pulse Resp BP Pulse Ox 97.6 F 62 20 145/92 H 96 10/03/16 23:55 10/03/16 23:55 10/03/16 23:55 10/03/16 23:55 10/03/16 23:55 Intake and Output: 10/04/16 10/04/16 06:59 18:59 Intake Total 860 Output Total 100 Balance 760 - Medications Medications: Current Medications Acetaminophen (Tylenol 325mg Tab) 650 mg PO Q6 PRN PRN Reason: Fever >100.4 F Last Admin: 10/02/16 15:36 Dose: 650 mg Acetaminophen (Tylenol 325mg Tab) 650 mg PO Q6 PRN PRN Reason: Pain, moderate (4-7) Last Admin: 10/03/16 11:40 Dose: 650 mg Chlordiazepoxide (Librium) 25 mg PO DAILY [facility] PRN Reason: Taper Stop: 10/04/16 11:59 Last Admin: 10/03/16 09:31 Dose: 25 mg Chlordiazepoxide (Librium) 25 mg PO Q4H PRN PRN Reason: Alcohol Withdrawal Last Admin: 10/03/16 20:43 Dose: 25 mg Enoxaparin Sodium (Lovenox) 40 mg SC DAILY [facility] Last Admin: 10/03/16 09:30 Dose: 40 mg Folic Acid (Folic Acid) 1 mg PO DAILY [facility] Last Admin: 10/03/16 09:32 Dose: 1 mg Lisinopril (Zestril) 10 mg PO DAILY [facility] Last Admin: 10/03/16 09:32 Dose: 10 mg Lorazepam (Ativan) 2 mg IVP Q3H PRN PRN Reason: Anxiety Last Admin: 10/03/16 22:29 Dose: 2 mg Methadone HCl (Methadone) 5 mg PO Q24H [facility] PRN Reason: Taper Stop: 10/04/16 08:59 Last Admin: 10/03/16 09:36 Dose: 5 mg Multivitamins (Hexavitamin) 1 tab PO DAILY [facility] Last Admin: 10/03/16 09:31 Dose: 1 tab Ondansetron HCl (Zofran Inj) 4 mg IVP Q6 PRN PRN Reason: Nausea/Vomiting Pantoprazole Sodium (Protonix Ec Tab) 40 mg PO DAILY [facility] Last Admin: 10/03/16 09:32 Dose: 40 mg Quetiapine Fumarate (Seroquel) 50 mg PO BID [facility] Last Admin: 10/03/16 18:00 Dose: 50 mg Thiamine HCl (Vitamin B1 Tab) 100 mg PO DAILY [facility] Last Admin: 10/03/16 09:32 Dose: 100 mg Trazodone HCl (Desyrel) 100 mg PO [facility] Last Admin: 10/03/16 22:06 Dose: 100 mg - Labs Labs: 10/03/16 07:24 10/03/16 07:24 - Constitutional Appears: Well - Head Exam Head Exam: ATRAUMATIC - Eye Exam Eye Exam: Normal appearance - ENT Exam ENT Exam: Mucous Membranes Moist - Respiratory Exam Respiratory Exam: Clear to Ausculation Bilateral, NORMAL BREATHING PATTERN - Cardiovascular Exam Cardiovascular Exam: REGULAR RHYTHM - GI/Abdominal Exam GI & Abdominal Exam: Soft, Normal Bowel Sounds - Exam External exam: absent: Ecchymosis - Extremities Exam Extremities Exam: absent: Calf Tenderness - Neurological Exam Neurological Exam: Alert, Awake - Psychiatric Exam Psychiatric exam: Normal Affect - Skin Skin Exam: Normal Color Assessment and Plan (1) Alcohol abuse Assessment & Plan: BP control prolonged QT from meds for substance abuse under 500 no syncope periodic ekg survellance Status: Acute (2) Atrial fibrillation Status: Acute (3) Drug dependence Status: Acute (4) Hypertension Status: Acute
[2016-10-04 08:23] LABS: HEMATOCRIT 47.1 % (35.0-51.0); MEAN CORPUSCULAR HEMOGLOBIN 29.6 pg (27.0-31.0); MEAN CORPUSCULAR HGB CONC 33.7 g/dL (33.0-37.0); RED CELL DISTRIBUTION WIDTH 13.1 % (11.5-14.5); WHITE BLOOD COUNT 6.6 K/uL (4.8-10.8)
[2016-10-04 08:38] LABS: CHLORIDE 99 mmol/L (98-107)
[2016-10-04 08:39] LABS: POTASSIUM 3.6 mmol/L (3.6-5.2); SODIUM 134 mmol/L (132-148)
[2016-10-04 08:41] VITALS: BP 170/105; TEMP 97.9; O2SAT 97
[2016-10-04 08:41] LABS: ALKALINE PHOSPHATASE 119 U/L (38-126); ALT/SGPT 75 U/L (21-72); AST/SGOT 103 U/L (17-59); BILIRUBIN,TOTAL 0.9 mg/dL (0.2-1.3); BLOOD UREA NITROGEN 10 mg/dL (9-20); CARBON DIOXIDE 24 mmol/L (22-30); GFR AFRICAN-AMERICAN > 60; GLUCOSE,RANDOM 102 mg/dL (75-110); TOTAL PROTEIN 7.8 g/dL (6.3-8.3)
[2016-10-04 08:42] LABS: CALCIUM 8.6 mg/dl (8.6-10.4); MAGNESIUM 1.9 mg/dL (1.6-2.3); PHOSPHOROUS 4.1 mg/dL (2.5-4.5)
[2016-10-04] MEDS: Pantoprazole 40 mg EC Tab PO SCH (09:19)
[2016-10-04] MEDS: Multiple Vitamins Tab PO SCH (09:19)
[2016-10-04] MEDS: Enoxaparin 40 mg Syringe SC SCH (09:19)
--- NOTE | 2016-10-04 09:23 | CP.PCM.DIS ---
<Dominga Gold - Last Filed: 10/04/16 14:43> Provider - Provider Date of Admission: 10/01/16 08:33 Attending physician: Sekou Hoskins MD Time Spent in preparation of Discharge (in minutes): 35 Hospital Course - Lab Results Lab Results: Most Recent Lab Values WBC 6.6 K/uL (4.8-10.8) 10/04/16 08:11 RBC 5.35 Mil/uL (4.40-5.90) 10/04/16 08:11 Hgb 15.9 g/dL (12.0-18.0) 10/04/16 08:11 Hct 47.1 % (35.0-51.0) 10/04/16 08:11 MCV 88.0 fL (80.0-94.0) 10/04/16 08:11 MCH 29.6 pg (27.0-31.0) 10/04/16 08:11 MCHC 33.7 g/dL (33.0-37.0) 10/04/16 08:11 RDW 13.1 % (11.5-14.5) 10/04/16 08:11 Plt Count 110 K/uL (130-400) L 10/04/16 08:11 MPV 10.0 fL (7.2-11.7) 10/04/16 08:11 Neut % (Auto) 33.9 % (50.0-75.0) L 10/01/16 06:50 Lymph % (Auto) 52.5 % (20.0-40.0) H 10/01/16 06:50 [place] % (Auto) 11.4 % (0.0-10.0) H 10/01/16 06:50 Eos % (Auto) 1.8 % (0.0-4.0) 10/01/16 06:50 Baso % (Auto) 0.4 % (0.0-2.0) 10/01/16 06:50 Neut # 1.1 K/uL (1.8-7.0) L 10/01/16 06:50 Lymph # 1.8 K/uL (1.0-4.3) 10/01/16 06:50 [place] # 0.4 K/uL (0.0-0.8) 10/01/16 06:50 Eos # 0.1 K/uL (0.0-0.7) 10/01/16 06:50 Baso # 0.0 K/uL (0.0-0.2) 10/01/16 06:50 Sodium 134 mmol/L (132-148) 10/04/16 08:11 Potassium 3.6 mmol/L (3.6-5.2) 10/04/16 08:11 Chloride 99 mmol/L (98-107) 10/04/16 08:11 Carbon Dioxide 24 mmol/L (22-30) 10/04/16 08:11 Anion Gap 14 (10-20) 10/04/16 08:11 BUN 10 mg/dL (9-20) 10/04/16 08:11 Creatinine 0.8 MG/DL (0.8-1.5) 10/04/16 08:11 Est GFR ( Amer) > 60 10/04/16 08:11 Est GFR (Non-Af Amer) > 60 10/04/16 08:11 POC Glucose (mg/dL) 87 mg/dL (65-110) 10/04/16 06:31 Random Glucose 102 mg/dL (75-110) 10/04/16 08:11 Calcium 8.6 mg/dl (8.6-10.4) 10/04/16 08:11 Phosphorus 4.1 mg/dL (2.5-4.5) 10/04/16 08:11 Magnesium 1.9 mg/dL (1.6-2.3) 10/04/16 08:11 Total Bilirubin 0.9 mg/dL (0.2-1.3) 10/04/16 08:11 AST 103 U/L (17-59) H 10/04/16 08:11 ALT 75 U/L (21-72) H 10/04/16 08:11 Alkaline Phosphatase 119 U/L (38-126) 10/04/16 08:11 Total Creatine Kinase 78 U/L (55-170) 09/30/16 09:31 CK-MB (Mass) 0.42 ng/mL (0.0-3.38) 09/30/16 09:31 Troponin I, Quant 0.0200 ng/mL (0.00-0.120) 09/30/16 09:31 Total Protein 7.8 g/dL (6.3-8.3) 10/04/16 08:11 Albumin 3.8 g/dL (3.5-5.0) 10/04/16 08:11 Globulin 4.0 gm/dL (2.2-3.9) H 10/04/16 08:11 Albumin/Globulin Ratio 1.0 (1.0-2.1) 10/04/16 08:11 Lipase 62 U/L (23-300) 09/29/16 21:06 Urine Color Yellow (YELLOW) 09/29/16 22:01 Urine Clarity Clear (Clear) 09/29/16 22:01 Urine pH 5.0 (5.0-8.0) 09/29/16 22:01 Ur Specific [place] 1.008 (1.003-1.030) 09/29/16 22:01 Urine Protein Negative mg/dL (NEGATIVE) 09/29/16 22:01 Urine Glucose (UA) Normal mg/dL (Normal) 09/29/16 22:01 Urine Ketones Negative mg/dL (NEGATIVE) 09/29/16 22:01 Urine Blood Negative (NEGATIVE) 09/29/16 22:01 Urine Nitrate Negative (NEGATIVE) 09/29/16 22:01 Urine Bilirubin Negative (NEGATIVE) 09/29/16 22:01 Urine Urobilinogen 4.0 mg/dL (0.2-1.0) 09/29/16 22:01 Ur Leukocyte Esterase Neg Mary/uL (Negative) 09/29/16 22:01 Urine Opiates Screen Positive (NEGATIVE) 09/29/16 22:01 Urine Methadone Screen Negative (NEGATIVE) 09/29/16 22:01 Ur Barbiturates Screen Negative (NEGATIVE) 09/29/16 22:01 Ur Phencyclidine Scrn Negative (NEGATIVE) 09/29/16 22:01 Ur Amphetamines Screen Negative (NEGATIVE) 09/29/16 22:01 U Benzodiazepines Scrn Positive (NEGATIVE) 09/29/16 22:01 U Oth Cocaine Metabols Negative (NEGATIVE) 09/29/16 22:01 U Cannabinoids Screen Negative (NEGATIVE) 09/29/16 22:01 Alcohol, Quantitative 164 mg/dl (0-10) H 09/29/16 21:41 - Hospital Course Hospital Course: Upon Admission: CC: "Abdominal pain and Withdrawal" 55 M with PMH of HTN presents to [facility] with a complaint of abdominal pain and withdrawal. Patient states that pain began earlier today. He was with a friend this morning at 6 am doing heroin and drinking when he friend overdosed. He friend eventually so he decided he wanted go through detox. Patient reports associated nausea/vomiting earlier. He rates pain as 8/ 10 in severity. He describes it as constant sharp pain located in epigastrium and LLQ without radiation. Patient denies any specific exacerbating and alleviating factors. Admits to fever/chills, cp, sob, abd pain, n/v/d, constipation, weakness, fatigue, shaking. PMH: Denies PMH: HTN Meds: Denies Allergy: tomato PSH: Denies Hosp: Denies FH: uterine and lung CA Social: Smokes 1/2 pack per day, drinks 2 pints of liquor per day, uses 12-15 bags of ehroin per day, smokes crack, does cocaine occasionally Throughout the Hospital Course: Patient was admitted for abdominal pain. Patient had an ultrasound which showed no acute findings. Patient was placed on a librium taper, clonidine, and fluids for both Alcohol and Heroin withdrawal. Patient was tapered on methadone. Patient was also seen by cardiology due to asymptomatic bradycardia and QTc prolongation. As per cardiology, QTc <500 is acceptable for this patient. Seroquel, Trazodone, and methadone may be continued. Patient is stable for discharge. This is a brief summary of the patient's hospital course. Please review EMR for full course. Discharge Exam - Head Exam Head Exam: ATRAUMATIC, NORMOCEPHALIC - Eye Exam Eye Exam: Normal appearance - ENT Exam ENT Exam: Mucous Membranes Moist - Respiratory Exam Respiratory Exam: Clear to PA & Lateral, NORMAL BREATHING PATTERN. absent: Decreased Breath Sounds, Wheezes - Cardiovascular Exam Cardiovascular Exam: REGULAR RHYTHM, RRR, +S1, +S2 - GI/Abdominal Exam GI & Abdominal Exam: Normal Bowel Sounds, Soft. absent: Distended, Tenderness - Neurological Exam Neurological exam: Alert, Oriented x3 - Skin Skin Exam: Dry, Intact, Normal Color, Warm Discharge Plan - Discharge Medications Prescriptions: amLODIPine [Norvasc] 10 mg PO DAILY #30 tab Aspirin [Aspirin Chewable] 81 mg PO DAILY #30 chew Folic Acid 1 mg PO DAILY #30 tab Gabapentin [Neurontin] 400 mg PO TID #90 cap hydrALAZINE [Apresoline] 25 mg PO TID #90 tab Multivitamins [Hexavitamin] 1 tab PO DAILY #30 tab QUEtiapine [Seroquel] 100 mg PO BID #60 tab Thiamine [Vitamin B1 Tab] 100 mg PO DAILY #30 tab traZODone [Desyrel] 100 mg PO HS #30 tab - Follow Up Plan Condition: STABLE Disposition: HOME/ ROUTINE Instructions: Narcotic Abuse (DC), Acute Abdominal Pain (DC), Acute Abdominal Pain (GEN) Additional Instructions: Patient is to continue his current medications. Patient counseled and instructed on heroine cessation and for detox. Patient is to follow up with PMD or [facility] clinic for routine follow up within 1-2 weeks. Patient instructed to return to the ED if his symptoms return or worsen. Referrals: [facility] at [facility] [Outside] <Prasanna Agosto - Last Filed: 10/04/16 16:40> Provider - Provider Date of Admission: 10/01/16 08:33 Attending physician: Sekou Hoskins MD Hospital Course - Lab Results Lab Results: Most Recent Lab Values WBC 6.6 K/uL (4.8-10.8) 10/04/16 08:11 RBC 5.35 Mil/uL (4.40-5.90) 10/04/16 08:11 Hgb 15.9 g/dL (12.0-18.0) 10/04/16 08:11 Hct 47.1 % (35.0-51.0) 10/04/16 08:11 MCV 88.0 fL (80.0-94.0) 10/04/16 08:11 MCH 29.6 pg (27.0-31.0) 10/04/16 08:11 MCHC 33.7 g/dL (33.0-37.0) 10/04/16 08:11 RDW 13.1 % (11.5-14.5) 10/04/16 08:11 Plt Count 110 K/uL (130-400) L 10/04/16 08:11 MPV 10.0 fL (7.2-11.7) 10/04/16 08:11 Neut % (Auto) 33.9 % (50.0-75.0) L 10/01/16 06:50 Lymph % (Auto) 52.5 % (20.0-40.0) H 10/01/16 06:50 [place] % (Auto) 11.4 % (0.0-10.0) H 10/01/16 06:50 Eos % (Auto) 1.8 % (0.0-4.0) 10/01/16 06:50 Baso % (Auto) 0.4 % (0.0-2.0) 10/01/16 06:50 Neut # 1.1 K/uL (1.8-7.0) L 10/01/16 06:50 Lymph # 1.8 K/uL (1.0-4.3) 10/01/16 06:50 [place] # 0.4 K/uL (0.0-0.8) 10/01/16 06:50 Eos # 0.1 K/uL (0.0-0.7) 10/01/16 06:50 Baso # 0.0 K/uL (0.0-0.2) 10/01/16 06:50 Sodium 134 mmol/L (132-148) 10/04/16 08:11 Potassium 3.6 mmol/L (3.6-5.2) 10/04/16 08:11 Chloride 99 mmol/L (98-107) 10/04/16 08:11 Carbon Dioxide 24 mmol/L (22-30) 10/04/16 08:11 Anion Gap 14 (10-20) 10/04/16 08:11 BUN 10 mg/dL (9-20) 10/04/16 08:11 Creatinine 0.8 MG/DL (0.8-1.5) 10/04/16 08:11 Est GFR ( Amer) > 60 10/04/16 08:11 Est GFR (Non-Af Amer) > 60 10/04/16 08:11 POC Glucose (mg/dL) 87 mg/dL (65-110) 10/04/16 06:31 Random Glucose 102 mg/dL (75-110) 10/04/16 08:11 Calcium 8.6 mg/dl (8.6-10.4) 10/04/16 08:11 Phosphorus 4.1 mg/dL (2.5-4.5) 10/04/16 08:11 Magnesium 1.9 mg/dL (1.6-2.3) 10/04/16 08:11 Total Bilirubin 0.9 mg/dL (0.2-1.3) 10/04/16 08:11 AST 103 U/L (17-59) H 10/04/16 08:11 ALT 75 U/L (21-72) H 10/04/16 08:11 Alkaline Phosphatase 119 U/L (38-126) 10/04/16 08:11 Total Creatine Kinase 78 U/L (55-170) 09/30/16 09:31 CK-MB (Mass) 0.42 ng/mL (0.0-3.38) 09/30/16 09:31 Troponin I, Quant 0.0200 ng/mL (0.00-0.120) 09/30/16 09:31 Total Protein 7.8 g/dL (6.3-8.3) 10/04/16 08:11 Albumin 3.8 g/dL (3.5-5.0) 10/04/16 08:11 Globulin 4.0 gm/dL (2.2-3.9) H 10/04/16 08:11 Albumin/Globulin Ratio 1.0 (1.0-2.1) 10/04/16 08:11 Lipase 62 U/L (23-300) 09/29/16 21:06 Urine Color Yellow (YELLOW) 09/29/16 22:01 Urine Clarity Clear (Clear) 09/29/16 22:01 Urine pH 5.0 (5.0-8.0) 09/29/16 22:01 Ur Specific [place] 1.008 (1.003-1.030) 09/29/16 22:01 Urine Protein Negative mg/dL (NEGATIVE) 09/29/16 22:01 Urine Glucose (UA) Normal mg/dL (Normal) 09/29/16 22:01 Urine Ketones Negative mg/dL (NEGATIVE) 09/29/16 22:01 Urine Blood Negative (NEGATIVE) 09/29/16 22:01 Urine Nitrate Negative (NEGATIVE) 09/29/16 22:01 Urine Bilirubin Negative (NEGATIVE) 09/29/16 22:01 Urine Urobilinogen 4.0 mg/dL (0.2-1.0) 09/29/16 22:01 Ur Leukocyte Esterase Neg Mary/uL (Negative) 09/29/16 22:01 Urine Opiates Screen Positive (NEGATIVE) 09/29/16 22:01 Urine Methadone Screen Negative (NEGATIVE) 09/29/16 22:01 Ur Barbiturates Screen Negative (NEGATIVE) 09/29/16 22:01 Ur Phencyclidine Scrn Negative (NEGATIVE) 09/29/16 22:01 Ur Amphetamines Screen Negative (NEGATIVE) 09/29/16 22:01 U Benzodiazepines Scrn Positive (NEGATIVE) 09/29/16 22:01 U Oth Cocaine Metabols Negative (NEGATIVE) 09/29/16 22:01 U Cannabinoids Screen Negative (NEGATIVE) 09/29/16 22:01 Alcohol, Quantitative 164 mg/dl (0-10) H 09/29/16 21:41 Attending/Attestation - Attestation I have personally seen and examined this patient.: Yes I have fully participated in the care of the patient.: Yes I have reviewed all pertinent clinical information, including history, physical exam and plan: Yes Notes (Text): 10/04/16 16:35 Medical Attending: Patient was seen and examined by me. Agree with the above note by resident Patient will be discharged today. When I came and saw patient today the first thing he asked for was more methadone. I explained to the patient that he was on a tapering dose of methadone as per the psychiatry and that this would not be changed. Reviewed lab work and also reviewed telemetry his HR is much better now with telemetry showing HR in the 60s and 70s. I strongly advised the patient that he has to change his life and stop using heroin and smoking as he has already done a lot of damage to his body but that he could still turn things around. Prasanna Agosto 10/04/16 16:39
--- NOTE | 2016-10-28 19:27 | CARD ---
APPROVED REPORT EKG Measurement Heart [id number] <Conclusion> Marked sinus bradycardia Nonspecific T wave abnormality Abnormal ECG
== END 2016-10-04 11:15 | disposition home or self-care (01) | DRG 392 ==
LOC: C.ER 20:40 → C.9E 09-30 00:50 → C.5T 09-30 04:56 → OBSVTOIN 10-01 08:33 → C.6T 10-02 12:06
PROVIDERS: ADMIT Family Medicine; ATTEND Family Medicine
PROC: HZ42ZZZ Group Counseling for Substance Abuse Treatment, Cognitive-Behavioral (ICD-10-PCS; principal; 2016-10-01)
PROC: HZ32ZZZ Individual Counseling for Substance Abuse Treatment, Cognitive-Behavioral (ICD-10-PCS; 2016-10-01)
PROC: HZ2ZZZZ Detoxification Services for Substance Abuse Treatment (ICD-10-PCS; 2016-10-01)
PROC: HZ46ZZZ Group Counseling for Substance Abuse Treatment, Psychoeducation (ICD-10-PCS; 2016-10-01)
PROC: HZ36ZZZ Individual Counseling for Substance Abuse Treatment, Psychoeducation (ICD-10-PCS; 2016-10-01)
PROC: HZ59ZZZ Individual Psychotherapy for Substance Abuse Treatment, Supportive (ICD-10-PCS; 2016-10-01)
DX: R10.13 Epigastric pain (principal); I10 Essential (primary) hypertension; F11.23 Opioid dependence with withdrawal; F10.230 Alcohol dependence with withdrawal, uncomplicated; F41.9 Anxiety disorder, unspecified; Y90.6 Blood alcohol level of 120-199 mg/100 ml; F14.90 Cocaine use, unspecified, uncomplicated; F17.210 Nicotine dependence, cigarettes, uncomplicated; B19.20 Unspecified viral hepatitis C without hepatic coma; R00.1 Bradycardia, unspecified; R05 Cough

== ENCOUNTER 2017-04-03 20:23 | Emergency (ER) | payer SELFPAY ==
[2017-04-03 20:24] VITALS: BMI 30.4
[2017-04-03 20:32] VITALS: BP 162/91; PULSE 98; RESP 16; TEMP 97.8; O2SAT 97
[2017-04-03] MEDS ORDERED: cefTRIAXone (Rocephin) 250 mg Inj IM STA (20:38)
[2017-04-03 21:02] LABS: RBC URINE < 1 /hpf (0-3); TRANSITIONAL EPITHIAL < 1 /hpf (0-3); URINE BACTERIA RARE (<OCC); URINE BILIRUBIN 1+ (NEGATIVE); URINE BLOOD NEGATIVE (NEGATIVE); URINE COLOR Amber (YELLOW); URINE GLUCOSE (UA) NORMAL (Normal); URINE KETONE NEGATIVE (NEGATIVE); URINE LEUKOCYTE ESTERASE NEG Leu/uL (Negative); URINE PROTEIN 2+ mg/dL (NEGATIVE); WBC URINE 3 /hpf (0-5)
--- NOTE | 2017-04-03 21:09 | C.PDOC ---
History Of Present Illness 56 year old male presents to the ED for evaluation of a tingling and burning sensation to the tip of his penis for 1 week. Patient reports his current symptoms are similar to what he experienced when he was diagnosed with chlamydia. Patient is requesting treatment for a possible STI. Patient denies fever, chills, penile discharge. Time Seen by Provider: 04/03/17 20:36 Chief Complaint (Nursing): Male Genitourinary History Per: Patient History/Exam Limitations: no limitations Onset/Duration Of Symptoms: Other (1 week ) Current Symptoms Are (Timing): Still Present Associated Symptoms: denies: Fever, Chills Additional History Per: Patient Past Medical History Reviewed: Historical Data, Nursing Documentation, Vital Signs Vital Signs: Last Vital Signs Temp 97.8 F 04/03/17 20:30 Pulse 98 H 04/03/17 20:30 Resp 16 04/03/17 20:30 BP 162/91 H 04/03/17 20:30 Pulse Ox 97 04/03/17 21:51 - Medical History PMH: Anxiety (used to take Xanax), Hepatitis, HTN, Seizures Denies: Diabetes, HIV, Chronic Kidney Disease, Sexually Transmitted Disease Surgical History: No Surg Hx - [facility] Procedures DETOXIFICATION SERVICES FOR SUBSTANCE ABUSE TREATMENT (10/01/16) GROUP METAPHYSICS TEACHER FOR SUBSTANCE ABUSE TREATMENT, PSYCHOEDUCATION (10/01/16) GROUP METAPHYSICS TEACHER FOR SUBSTANCE ABUSE, COGNITIVE BEHAVIORAL (10/01/16) GROUP METAPHYSICS TEACHER FOR SUBSTANCE ABUSE, MOTIVATIONAL ENHANCE (02/11/15) INDIV METAPHYSICS TEACHER FOR SUBSTANCE ABUSE TREATMENT, PSYCHOEDUCATION (10/01/16) INDIV METAPHYSICS TEACHER FOR SUBSTANCE ABUSE, COGNITIVE BEHAVIORAL (10/01/16) INDIV PSYCHOTHERAPY FOR SUBSTANCE ABUSE TREATMENT, SUPPORT (10/01/16) MEDS MGMT FOR SUBSTANCE ABUSE TREATMENT, METHADONE MAINT (11/09/15) MEDS MGMT FOR SUBSTANCE ABUSE TREATMENT, OTH REPL MED (11/09/15) Family History: States: Unknown Family Hx - Social History Hx Tobacco Use: Yes Hx Alcohol Use: Yes (vodka 2 bottles last taken 09/29/16) Hx Substance Use: Yes - Immunization History Hx Tetanus Toxoid Vaccination: Yes Hx Influenza Vaccination: Yes Hx Pneumococcal Vaccination: Yes Review Of Systems Constitutional: Negative for: Fever, Chills Genitourinary: Positive for: Other (tingling and burning sensation to penis ). Negative for: Penile Discharge Physical Exam - Physical Exam Appears: Non-toxic, No Acute Distress Skin: Normal Color, Warm, Dry Head: Atraumatic, Normacephalic Eye(s): bilateral: Normal Inspection Oral Mucosa: Moist Neck: Normal ROM Male Genital: No Testicular Tenderness, No Testicular Swelling, No Scrotal Swelling, Circumcised Extremity: Bilateral: Atraumatic Neurological/Psych: Oriented x3, Normal Speech ED Course And Treatment O2 Sat by Pulse Oximetry: 97 (on RA) Pulse Ox Interpretation: Normal Medical Decision Making Medical Decision Making: Impression: 56 year old male with tingling and burning to penis Plan: * Urine culture * Chlamydia/GC * Urinalysis * Rocephin IM * Zithromax PO * reassess and disposition Progress: Urine culture ordered and sent to lab for evaluation . Chlamydia/GC and UA ordered. Rocephin IM and Zithromax PO administered. On reassessment, patient is resting comfortably, showing no signs of distress and reports an improvement in his symptoms. Patient is stable for discharge and is advised to follow up with his PMD within 1-2 days for further evaluation. Disposition Counseled Patient/Family Regarding: Diagnosis, Need For Followup - Disposition Referrals: Liliana Patel MD [Staff Provider] - Disposition: HOME/ ROUTINE Disposition Time: 21:07 Condition: STABLE Additional Instructions: You have been treated for STD Please follow up in the free clinic Instructions: Nonspecific Urethritis in Men (ED) Forms: [employer] (Kazakh), [facility] Print Language: ITALIAN - POA Present On Arrival: None - Clinical Impression Clinical Impression: STD exposure, Urethritis - PA / ROADMASTER / Resident Statement MD/ has reviewed & agrees with the documentation as recorded. - Scribe Statement The provider has reviewed the documentation as recorded by the Scribe (Denise Newman) All medical record entries made by the Scribe were at my direction and personally dictated by me. I have reviewed the chart and agree that the record accurately reflects my personal performance of the history, physical exam, medical decision making, and the department course for this patient. I have also personally directed, reviewed, and agree with the discharge instructions and disposition.
== END 2017-04-03 21:28 | disposition home or self-care (01) ==
LOC: C.ER 20:23
DX: N34.2 Other urethritis (principal); Z20.2 Contact with and (suspected) exposure to infections with a predominantly sexual mode of transmission
CPT/HCPCS: 81001; 87086; 87491; 87591; 96372; 99284; J0696

== ENCOUNTER 2017-09-27 00:14 | Emergency (ER) | payer SELFPAY ==
[2017-09-27 00:14] VITALS: BMI 30.4
[2017-09-27 00:30] VITALS: BP 128/84; PULSE 94; RESP 16; TEMP 97.8; O2SAT 96
--- NOTE | 2017-09-27 01:41 | C.PDOC ---
History Of Present Illness Pt here foe suture removal to left forearm placed 1 week ago. Pt denies fever , drainage or pain Time Seen by Provider: 09/27/17 00:35 Chief Complaint (Nursing): Suture/Staple Removal History Per: Patient History/Exam Limitations: no limitations Severity: None Past Medical History Vital Signs: Last Vital Signs Temp 97.8 F 09/27/17 00:27 Pulse 94 H 09/27/17 00:27 Resp 16 09/27/17 00:27 BP 128/84 09/27/17 00:27 Pulse Ox 96 09/27/17 00:27 - Medical History PMH: Anxiety (used to take Xanax), Hepatitis, HTN, Seizures Denies: Diabetes, HIV, Chronic Kidney Disease, Sexually Transmitted Disease - [facility] Procedures DETOXIFICATION SERVICES FOR SUBSTANCE ABUSE TREATMENT (10/01/16) GROUP SENIOR DESIGNER FOR SUBSTANCE ABUSE TREATMENT, PSYCHOEDUCATION (10/01/16) GROUP SENIOR DESIGNER FOR SUBSTANCE ABUSE, COGNITIVE BEHAVIORAL (10/01/16) GROUP SENIOR DESIGNER FOR SUBSTANCE ABUSE, MOTIVATIONAL ENHANCE (02/11/15) INDIV SENIOR DESIGNER FOR SUBSTANCE ABUSE TREATMENT, PSYCHOEDUCATION (10/01/16) INDIV SENIOR DESIGNER FOR SUBSTANCE ABUSE, COGNITIVE BEHAVIORAL (10/01/16) INDIV PSYCHOTHERAPY FOR SUBSTANCE ABUSE TREATMENT, SUPPORT (10/01/16) MEDS MGMT FOR SUBSTANCE ABUSE TREATMENT, METHADONE MAINT (11/09/15) MEDS MGMT FOR SUBSTANCE ABUSE TREATMENT, OTH REPL MED (11/09/15) Family History: States: Unknown Family Hx - Social History Hx Tobacco Use: Yes Hx Alcohol Use: Yes (vodka 2 bottles last taken 09/29/16) Hx Substance Use: Yes - Immunization History Hx Tetanus Toxoid Vaccination: Yes Hx Influenza Vaccination: Yes Hx Pneumococcal Vaccination: Yes Review Of Systems Skin: Positive for: Other (wound - sutured) Physical Exam - Physical Exam Skin: Normal Color, Other (4 sutures to left forearm- appears well healed ) Eye(s): bilateral: Normal Inspection Extremity: Normal ROM, No Tenderness, No Swelling Extremity: Bilateral: Atraumatic Neurological/Psych: Oriented x3 ED Course And Treatment O2 Sat by Pulse Oximetry: 96 Pulse Ox Interpretation: Normal Progress Note: 4 sutures removed to left forearm - wound with scabs, otherwise no dehiscence. bacitracin applied Disposition Counseled Patient/Family Regarding: Diagnosis, Need For Followup - Disposition Disposition: HOME/ ROUTINE Disposition Time: 01:39 Condition: STABLE Additional Instructions: Follow up in clinic Return if any concerns Instructions: Stitches Removal - Clinical Impression Clinical Impression: Removal of suture
== END 2017-09-27 02:12 | disposition home or self-care (01) ==
LOC: C.ER 00:14
DX: S51.812D Laceration without foreign body of left forearm, subsequent encounter (principal); I10 Essential (primary) hypertension; Z72.0 Tobacco use

== ENCOUNTER 2017-10-07 21:44 | Emergency (ER) | payer SELFPAY ==
[2017-10-07 21:44] VITALS: BMI 30.4
[2017-10-07 21:51] VITALS: TEMP 98
[2017-10-07] MEDS ORDERED: Naloxone 0.4 mg/ml Inj (Adult) IVP STA (22:02)
[2017-10-07] MEDS ORDERED: Naloxone 0.4 mg/ml Inj (Adult) ONE (22:04)
[2017-10-07] MEDS ORDERED: Sodium Chloride 0.9% 1,000 ML IV ONE (22:48)
--- NOTE | 2017-10-07 22:49 | C.PDOC ---
History Of Present Illness <Andrzej Chan - Last Filed: 10/08/17 01:01> <Marie Jones - Last Filed: 10/08/17 05:17> 56 year old male presents to the emergency department after being brought in by ambulance for public intoxication. Patient is a well-known, local, homeless, drug abuser. (Andrzej Chan) History Per: Patient History/Exam Limitations: no limitations Onset/Duration Of Symptoms: Hrs Current Symptoms Are (Timing): Still Present Suicide/Self Injury Attempted (Context): None Modifying Factor(s): Alcohol Associated Symptoms: denies: Suicidal Thoughts, Suicidal Plan <Andrzej Chan - Last Filed: 10/08/17 01:01> <Marie Jones - Last Filed: 10/08/17 05:17> Time Seen by Provider: 10/07/17 22:09 Chief Complaint (Nursing): Substance Abuse Past Medical History Reviewed: Historical Data, Nursing Documentation, Vital Signs - Medical History PMH: Anxiety (used to take Xanax), Hepatitis, HTN, Seizures Denies: Diabetes, HIV, Chronic Kidney Disease, Sexually Transmitted Disease Surgical History: No Surg Hx Family History: States: No Known Family Hx - Social History Hx Tobacco Use: Yes Hx Alcohol Use: Yes Hx Substance Use: Yes - Immunization History Hx Tetanus Toxoid Vaccination: Yes Hx Influenza Vaccination: Yes Hx Pneumococcal Vaccination: Yes <DustinAndrzej Baer - Last Filed: 10/08/17 01:01> Vital Signs: Last Vital Signs Temp 98 F 10/08/17 03:24 Pulse 73 10/08/17 03:24 Resp 20 10/08/17 03:24 BP 144/94 H 10/08/17 03:24 Pulse Ox 98 10/08/17 03:24 - [facility] Procedures DETOXIFICATION SERVICES FOR SUBSTANCE ABUSE TREATMENT (10/01/16) GROUP SPECIAL EVENT ASSISTANT FOR SUBSTANCE ABUSE TREATMENT, PSYCHOEDUCATION (10/01/16) GROUP SPECIAL EVENT ASSISTANT FOR SUBSTANCE ABUSE, COGNITIVE BEHAVIORAL (10/01/16) GROUP SPECIAL EVENT ASSISTANT FOR SUBSTANCE ABUSE, MOTIVATIONAL ENHANCE (02/11/15) INDIV SPECIAL EVENT ASSISTANT FOR SUBSTANCE ABUSE TREATMENT, PSYCHOEDUCATION (10/01/16) INDIV SPECIAL EVENT ASSISTANT FOR SUBSTANCE ABUSE, COGNITIVE BEHAVIORAL (10/01/16) INDIV PSYCHOTHERAPY FOR SUBSTANCE ABUSE TREATMENT, SUPPORT (10/01/16) MEDS MGMT FOR SUBSTANCE ABUSE TREATMENT, METHADONE MAINT (11/09/15) MEDS MGMT FOR SUBSTANCE ABUSE TREATMENT, OTH REPL MED (11/09/15) Review Of Systems Except As Marked, All Systems Reviewed And Found Negative. Neurological: Positive for: Altered Mental Status (alcohol intoxication) <Andrzej Chan - Last Filed: 10/08/17 01:01> Physical Exam - Physical Exam Appears: Non-toxic, No Acute Distress, Unkempt (disheveled, foul-smelling) Skin: Warm, Dry Head: Atraumatic, Normacephalic Eye(s): bilateral: Other (pinpoint pupils, opacified lenses) Nose: Normal Neck: Normal, Supple Chest: Symmetrical Cardiovascular: Rhythm Regular Respiratory: Normal Breath Sounds Extremity: Normal ROM Extremity: Bilateral: Atraumatic, Normal Color And Temperature Neurological/Psych: Other (intoxicated) <Andrzej Chan - Last Filed: 10/08/17 01:01> ED Course And Treatment - Laboratory Results Result Diagrams: 10/07/17 23:05 10/07/17 23:05 Lab Interpretation: Abnormal (tox + cocaine, opiates, ETOH 329) O2 Sat by Pulse Oximetry: 96 (RA) Pulse Ox Interpretation: Normal Progress Note: IVF, narcan 2 mg IV Reevaluation Time: 00:32 Reassessment Condition: Improved (more easily arousable, but very stuperous) <Andrzej Chan - Last Filed: 10/08/17 01:01> - Laboratory Results Result Diagrams: 10/07/17 23:05 10/07/17 23:05 <Marie Jones - Last Filed: 10/08/17 05:17> Medical Decision Making <Andrzej Chan - Last Filed: 10/08/17 01:01> <Marie Jones - Last Filed: 10/08/17 05:17> Medical Decision Making: alcohol, cocaine, opiate abuse (Andrzej Chan) Disposition - Disposition Disposition Time: 01:00 <Andrzej Chan - Last Filed: 10/08/17 01:01> Counseled Patient/Family Regarding: Studies Performed, Diagnosis, Need For Followup <Marie Jones - Last Filed: 10/08/17 05:17> - Disposition Referrals: [facility] at [facility] [Outside] Disposition: HOME/ ROUTINE Condition: FAIR Instructions: Polysubstance Abuse (DC), Alcohol Abuse and Alcoholism (DC) Forms: [employer] (Australian) - Clinical Impression Clinical Impression: Acute alcoholic intoxication in alcoholism, Drug abuse - Scribe Statement The provider has reviewed the documentation as recorded by the Scribe (Clifton Chelle) <Andrzej Chan - Last Filed: 10/08/17 01:01> <Marie Jones - Last Filed: 10/08/17 05:17> - Scribe Statement Provider Attestation: All medical record entries made by the Scribe were at my direction and personally dictated by me. I have reviewed the chart and agree that the record accurately reflects my personal performance of the history, physical exam, medical decision making, and the department course for this patient. I have also personally directed, reviewed, and agree with the discharge instructions and disposition. (Andrzej Chan) Physician Patient Turnover Patient Signed Over To: Marie Jones Handoff Comments: pending Sobriety in AM <Andrzej Chan - Last Filed: 10/08/17 01:01>
[2017-10-07 23:10] LABS: BASO % 0.3 % (0.0-2.0); EOS % 0.6 % (0.0-4.0); HEMOGLOBIN 15.7 g/dL (12.0-18.0); LYMPH # 3.4 K/uL (1.0-4.3); LYMPH % 60.9 % (20.0-40.0); MEAN CELL VOLUME 89.7 fL (80.0-94.0); MEAN CORPUSCULAR HEMOGLOBIN 30.8 pg (27.0-31.0); MEAN CORPUSCULAR HGB CONC 34.3 g/dL (33.0-37.0); MEAN PLATELET VOLUME 9.7 fL (7.2-11.7); MONO # 0.4 K/uL (0.0-0.8); MONO % 7.7 % (0.0-10.0); NEUT # 1.7 K/uL (1.8-7.0); NEUT % 30.5 % (50.0-75.0); NRBC % 0.1 % (0.0-2.0); RBC 5.09 Mil/uL (4.40-5.90); RED CELL DISTRIBUTION WIDTH 14.3 % (11.5-14.5); WHITE BLOOD COUNT 5.6 K/uL (4.8-10.8)
[2017-10-07 23:21] LABS: ACETAMINOPHEN < 10.0 ug/mL (10.0-30.0); SALICYLATE < 1.0 mg/dL 1
[2017-10-07 23:21] LABS: URINE BACTERIA RARE (<OCC); URINE BILIRUBIN NEGATIVE (NEGATIVE); URINE BLOOD NEGATIVE (NEGATIVE); URINE CLARITY Clear (Clear); URINE COLOR Yellow (YELLOW); URINE GLUCOSE (UA) NORMAL (Normal); URINE LEUKOCYTE ESTERASE NEG Leu/uL (Negative); URINE PROTEIN NEGATIVE (NEGATIVE)
[2017-10-07 23:24] LABS: ALB/GLOB RATIO 0.8 (1.0-2.1); ALBUMIN 3.8 g/dL (3.5-5.0); ALT/SGPT 69 U/L (21-72); AST/SGOT 228 U/L (17-59); BLOOD UREA NITROGEN 11 mg/dL (9-20); CALCIUM 8.5 mg/dl (8.6-10.4); GFR AFRICAN-AMERICAN > 60; GFR NON-AFRICAN AMERICAN > 60
[2017-10-07 23:32] LABS: BARBITURATES, UR NEGATIVE (NEGATIVE); PHENCYCLIDINE, UR NEGATIVE (NEGATIVE)
[2017-10-07 23:33] LABS: BENZODIAZEPINES, UR POSITIVE (NEGATIVE); OPIATES, UR POSITIVE (NEGATIVE)
[2017-10-08 00:51] VITALS: BP 144/94
[2017-10-08 03:26] VITALS: PULSE 73; RESP 20; O2SAT 98
== END 2017-10-08 07:00 | disposition home or self-care (01) ==
LOC: C.ER 21:44
DX: F10.229 Alcohol dependence with intoxication, unspecified (principal); F19.10 Other psychoactive substance abuse, uncomplicated; Y90.8 Blood alcohol level of 240 mg/100 ml or more
CPT/HCPCS: 80053; 81001; 82550; 85025; 96361; 96374; 99284; G0480; J2310; J7030

== ENCOUNTER 2017-11-24 23:47 | Emergency (ER) | payer OTHER ==
[2017-11-24 23:48] VITALS: BMI 30.4
[2017-11-25 00:03] VITALS: RESP 18
--- NOTE | 2017-11-25 00:17 | C.PDOC ---
History Of Present Illness patient under police custody. States he drinks everyday and his last drink was at noon. denies any suicidal or homicidal ideation. No f/c/n/v. tetanus UTD.. States he also has been doing heroin Time Seen by Provider: 11/25/17 00:17 Chief Complaint (Nursing): Substance Abuse Past Medical History Reviewed: Historical Data, Nursing Documentation, Vital Signs Vital Signs: Last Vital Signs Temp 98 F 11/24/17 23:59 Pulse 70 11/24/17 23:59 Resp 18 11/24/17 23:59 BP 132/90 11/24/17 23:59 Pulse Ox 99 11/25/17 00:27 - Medical History PMH: Anxiety (used to take Xanax), Hepatitis, HTN, Seizures Denies: Diabetes, HIV, Chronic Kidney Disease, Sexually Transmitted Disease - [facility] Procedures DETOXIFICATION SERVICES FOR SUBSTANCE ABUSE TREATMENT (10/01/16) GROUP RESEARCH GEOLOGIST FOR SUBSTANCE ABUSE TREATMENT, PSYCHOEDUCATION (10/01/16) GROUP RESEARCH GEOLOGIST FOR SUBSTANCE ABUSE, COGNITIVE BEHAVIORAL (10/01/16) GROUP RESEARCH GEOLOGIST FOR SUBSTANCE ABUSE, MOTIVATIONAL ENHANCE (02/11/15) INDIV RESEARCH GEOLOGIST FOR SUBSTANCE ABUSE TREATMENT, PSYCHOEDUCATION (10/01/16) INDIV RESEARCH GEOLOGIST FOR SUBSTANCE ABUSE, COGNITIVE BEHAVIORAL (10/01/16) INDIV PSYCHOTHERAPY FOR SUBSTANCE ABUSE TREATMENT, SUPPORT (10/01/16) MEDS MGMT FOR SUBSTANCE ABUSE TREATMENT, METHADONE MAINT (11/09/15) MEDS MGMT FOR SUBSTANCE ABUSE TREATMENT, OTH REPL MED (11/09/15) Family History: States: No Known Family Hx - Social History Hx Tobacco Use: Yes Hx Alcohol Use: Yes Hx Substance Use: Yes - Immunization History Hx Tetanus Toxoid Vaccination: Yes Hx Influenza Vaccination: No Hx Pneumococcal Vaccination: No Review Of Systems Constitutional: Negative for: Fever, Chills ENT: Negative for: Throat Pain Cardiovascular: Negative for: Chest Pain Respiratory: Negative for: Shortness of Breath Gastrointestinal: Negative for: Nausea, Vomiting, Abdominal Pain Genitourinary: Negative for: Dysuria Musculoskeletal: Negative for: Back Pain Skin: Positive for: Rash ( r knee) Neurological: Negative for: Weakness, Numbness Psych: Negative for: Anxiety, Depression, Withdrawal Physical Exam - Physical Exam Appears: Non-toxic, No Acute Distress Skin: Warm, Dry Head: Normacephalic Eye(s): bilateral: Normal Inspection Oral Mucosa: Moist Neck: Supple Chest: Symmetrical Cardiovascular: Rhythm Regular Respiratory: No Rales, No Rhonchi, No Wheezing Gastrointestinal/Abdominal: Soft, No Tenderness, No Distention Back: Normal Inspection Extremity: Normal ROM, Other (0.5 cm sup abrasion right knee) Extremity: Bilateral: Normal Color And Temperature Pulses: Left Dorsalis Pedis: Normal, Right Dorsalis Pedis: Normal Neurological/Psych: Oriented x3 Gait: Steady ED Course And Treatment - Laboratory Results Result Diagrams: 11/25/17 01:03 11/25/17 00:43 O2 Sat by Pulse Oximetry: 99 Pulse Ox Interpretation: Normal Reevaluation Time: 02:27 Reassessment Condition: Improved Disposition Counseled Patient/Family Regarding: Studies Performed, Diagnosis, Need For Followup - Disposition Referrals: [facility] [Outside] Disposition: RELEASED IN POLICE CUSTODY Disposition Time: 00:17 Condition: FAIR Additional Instructions: Patient is medically cleared for incarceration Instructions: Polysubstance Abuse (DC) Forms: [employer] (Nepali) - Clinical Impression Clinical Impression: Polysubstance abuse
[2017-11-25 00:55] LABS: URINE BILIRUBIN NEGATIVE (NEGATIVE); URINE BLOOD NEGATIVE (NEGATIVE); URINE CLARITY Clear (Clear); URINE COLOR Yellow (YELLOW); URINE GLUCOSE (UA) NORMAL (Normal); URINE LEUKOCYTE ESTERASE NEG Leu/uL (Negative); URINE PROTEIN NEGATIVE (NEGATIVE)
[2017-11-25 01:06] LABS: BASO % 0.7 % (0.0-2.0); EOS # 0.2 K/uL (0.0-0.7); EOS % 3.3 % (0.0-4.0); LYMPH # 2.3 K/uL (1.0-4.3); LYMPH % 49.3 % (20.0-40.0); MEAN CELL VOLUME 88.7 fL (80.0-94.0); MEAN CORPUSCULAR HEMOGLOBIN 29.9 pg (27.0-31.0); MEAN CORPUSCULAR HGB CONC 33.7 g/dL (33.0-37.0); MEAN PLATELET VOLUME 8.3 fL (7.2-11.7); MONO # 0.4 K/uL (0.0-0.8); MONO % 9.7 % (0.0-10.0); NEUT # 1.7 K/uL (1.8-7.0); NRBC % 0.1 % (0.0-2.0); RBC 4.67 Mil/uL (4.40-5.90); RED CELL DISTRIBUTION WIDTH 13.5 % (11.5-14.5); WHITE BLOOD COUNT 4.6 K/uL (4.8-10.8)
[2017-11-25 01:08] LABS: ALBUMIN 3.6 g/dL (3.5-5.0); CALCIUM 8.2 mg/dl (8.6-10.4); GFR AFRICAN-AMERICAN > 60; GFR NON-AFRICAN AMERICAN > 60
[2017-11-25 01:14] LABS: ALT/SGPT 47 U/L (21-72); AST/SGOT 103 U/L (17-59); BLOOD UREA NITROGEN 8 mg/dL (9-20)
[2017-11-25 01:27] LABS: BARBITURATES, UR NEGATIVE (NEGATIVE)
[2017-11-25 02:21] LABS: BENZODIAZEPINES, UR POSITIVE (NEGATIVE); OPIATES, UR POSITIVE (NEGATIVE)
[2017-11-25 02:25] LABS: PHENCYCLIDINE, UR NEGATIVE (NEGATIVE)
[2017-11-25 02:34] VITALS: BP 126/84; PULSE 76; TEMP 98.2; O2SAT 98
== END 2017-11-25 02:34 ==
LOC: C.ER 23:47 → SUPCPDRO 23:47 → C.ER 11-25 02:34
DX: F19.10 Other psychoactive substance abuse, uncomplicated (principal); Z65.3 Problems related to other legal circumstances; F41.9 Anxiety disorder, unspecified; I10 Essential (primary) hypertension; F17.210 Nicotine dependence, cigarettes, uncomplicated

== ENCOUNTER 2017-12-27 17:24 | Emergency (ER) | payer OTHER ==
[2017-12-27 17:25] VITALS: BMI 30.4
--- NOTE | 2017-12-27 19:03 | C.PDOC ---
History Of Present Illness 57 y/o male brought in by ambulance after he was found unresponsive, presumed heroin overdose. As per EMS, patient received 0.4 mg Narcan in the field and immediately became awake, alert, oriented x3. On arrival to the ED, patient appears sleepy but arousable. He denies any pain or other physical complaints. Time Seen by Provider: 12/27/17 17:49 Chief Complaint (Nursing): Substance Abuse History Per: Patient History/Exam Limitations: no limitations Onset/Duration Of Symptoms: Unknown Current Symptoms Are (Timing): Better Severity: None Pain Scale Rating Of: 0 Involuntary Hold By: None Additional History Per: EMS Past Medical History Reviewed: Historical Data, Nursing Documentation, Vital Signs Vital Signs: Last Vital Signs Temp 98.2 F 12/27/17 17:40 Pulse 81 12/27/17 17:40 Resp 18 12/27/17 17:40 BP 108/82 12/27/17 17:40 Pulse Ox 100 12/27/17 19:04 - Medical History PMH: Anxiety (used to take Xanax), Hepatitis, HTN, Seizures Denies: Diabetes, HIV, Chronic Kidney Disease, Sexually Transmitted Disease - [facility] Procedures DETOXIFICATION SERVICES FOR SUBSTANCE ABUSE TREATMENT (10/01/16) GROUP SERVICE DOG TRAINER FOR SUBSTANCE ABUSE TREATMENT, PSYCHOEDUCATION (10/01/16) GROUP SERVICE DOG TRAINER FOR SUBSTANCE ABUSE, COGNITIVE BEHAVIORAL (10/01/16) GROUP SERVICE DOG TRAINER FOR SUBSTANCE ABUSE, MOTIVATIONAL ENHANCE (02/11/15) INDIV SERVICE DOG TRAINER FOR SUBSTANCE ABUSE TREATMENT, PSYCHOEDUCATION (10/01/16) INDIV SERVICE DOG TRAINER FOR SUBSTANCE ABUSE, COGNITIVE BEHAVIORAL (10/01/16) INDIV PSYCHOTHERAPY FOR SUBSTANCE ABUSE TREATMENT, SUPPORT (10/01/16) MEDS MGMT FOR SUBSTANCE ABUSE TREATMENT, METHADONE MAINT (11/09/15) MEDS MGMT FOR SUBSTANCE ABUSE TREATMENT, OTH REPL MED (11/09/15) Family History: States: Unknown Family Hx - Social History Hx Tobacco Use: Yes Hx Alcohol Use: Yes Hx Substance Use: Yes - Immunization History Hx Tetanus Toxoid Vaccination: Yes Hx Influenza Vaccination: No Hx Pneumococcal Vaccination: No Review Of Systems Except As Marked, All Systems Reviewed And Found Negative. Constitutional: Positive for: Other (Heroin abuse). Negative for: Fever Cardiovascular: Negative for: Chest Pain Respiratory: Negative for: Shortness of Breath Gastrointestinal: Negative for: Vomiting, Abdominal Pain Psych: Negative for: Suicidal ideation, Withdrawal Physical Exam - Physical Exam Additional Physical Exam Comments: Constitutional: Appears drowsy but arousable. No acute distress. Head: Normocephalic. Atraumatic. Eyes: PERRL. ENT: Moist mucous membranes. Neck: Supple. Cardiovascular: Regular rate. Radial pulse 2+ bilaterally. Chest: No tenderness. Respiratory: Clear to auscultation bilaterally. GI: Soft. Nontender. Nondistended. Back: No CVA tenderness. Musculoskeletal: No tenderness or swelling of extremities. Skin: No rash. Neurologic: Awake, alert, no focal deficit. ED Course And Treatment O2 Sat by Pulse Oximetry: 100 (RA) Pulse Ox Interpretation: Normal Medical Decision Making Medical Decision Making: Impression: Presumed heroin OD Plan: Patient placed on continuous pulse ox monitor. Will continue to observe in the ED for sobriety. Observed for 6 hours. Awake, alert, no complaints. Disposition - Disposition Disposition: HOME/ ROUTINE Disposition Time: 23:21 Condition: STABLE Instructions: Narcotic Overdose Forms: [employer] (Panamanian) - Clinical Impression Clinical Impression: Heroin abuse - Scribe Statement The provider has reviewed the documentation as recorded by the Scribe (Ora Rubio) Provider Attestation: All medical record entries made by the Scribe were at my direction and personally dictated by me. I have reviewed the chart and agree that the record accurately reflects my personal performance of the history, physical exam, medical decision making, and the department course for this patient. I have also personally directed, reviewed, and agree with the discharge instructions and disposition.
[2017-12-27 23:48] VITALS: BP 129/68; PULSE 71; RESP 20; TEMP 98; O2SAT 98
== END 2017-12-27 23:47 | disposition home or self-care (01) ==
LOC: C.ER 17:24
DX: F11.10 Opioid abuse, uncomplicated (principal)